=== PATIENT | male | born 1950 | race Caucasian/White ===

== ENCOUNTER 2018-10-22 20:35 | Inpatient (IN) | payer BC, MEDICARE, OTHER ==
[~2018-10-22] VITALS: Ht 182.9 cm; Wt 64.1 kg
[2018-10-22] MEDS ORDERED: ALBUTEROL/IPRATROPIUM 3 ML NEB NEB STA (21:50)
--- NOTE | 2018-10-22 21:50 | Diagnostic Imaging Report ---
EXAMINATION: CXR 2 VIEW - HOPD INDICATION: Possible URI, cough of one-week ^20181022 ^2129 COMPARISON: None FINDINGS: PA and lateral views TUBES and LINES: None. LUNGS: Diffuse hyperinflation consistent with emphysema. There are bullous emphysematous changes or a cavity in the right upper lobe with stellate density at the inferior aspect. There is adjacent pleural thickening. There are infiltrates in the right lower lobe. The left lung is clear. PLEURA: No pleural effusion or pneumothorax. HEART AND MEDIASTINUM: The cardiomediastinal silhouette is unremarkable. There is rightward deviation of the upper trachea. BONES AND SOFT TISSUES: Diffusely demineralized. There are degenerative changes of the spine. No focal osseous lesions. Soft tissues are unremarkable. UPPER ABDOMEN: No free air under the diaphragm. IMPRESSION: 1. Right lower lobe airspace opacity is suggestive of pneumonia. Recommend follow-up chest x-ray in 8-10 weeks to document interval change/resolution. 2. Bullous emphysematous changes or cavitation of the right upper lobe with associated scarring, pleural thickening, and rightward deviation of the trachea. Correlation with outside studies and TB history is recommended. Signed by: Dr. Moody Bowen MD on 10/22/2018 9:46 PM
[2018-10-22] MEDS ORDERED: ALBUTEROL/IPRATROPIUM 3 ML NEB ONE (21:55)
[2018-10-22] MEDS ORDERED: CEFTRIAXONE SOD 1 GRAM/0.9% SOD CHL 50ML BAG IV STA (21:58)
[2018-10-22] MEDS: NICOTINE 14 MG/EA PATCH TOP SCH (22:00)
[2018-10-22] MEDS ORDERED: AZITHROMYCIN 500MG/NS 250 ML 250 ML IV ONE (22:00)
--- OUTSIDE RECORDS SUMMARY | 2018-10-22 22:37 | XMS REPORT ---
[facility] Address Unknown Phone Unavailable Care Team Providers Care Phlebotomy Services Technician Name Role Phone PARAS MILLER Unavailable Unavailable Problems This patient has no known problems. Allergies, Adverse Reactions, Alerts This patient has no known allergies or adverse reactions. Medications This patient has no known medications. Results Test Description Test Time Test Comments Text Results Atomic Results Result Comments CXR 2 VIEW - HOPD 2018-10-22 21:41:00 [place] [address] Patient Name: MAYTE MCKEON MR #: [id number] : 1950 Age/Sex: 68/M Req #: [id number] Adm Physician: Ordered by: PARAS MILLER MD Report #: [id number] Location: [facility] Room/Bed: Procedure: [id number] HOPD/CXR 2 VIEW - HOPD Exam Date: 10/22/18 Exam Time: 2129 REPORT STATUS: Signed EXAMINATION: CXR 2 VIEW - HOPD INDICATION: Possible URI, cough of one-week 20181022 COMPARISON: None FINDINGS: PA and lateral views TUBES and LINES: None. LUNGS: Diffuse hyperinflation consistent with emphysema. There are bullous emphysematous changes or a cavity in the right upper lobe with stellate density at the inferior aspect. There is adjacent pleural thickening. There are infiltrates in the right lower lobe. The left lung is clear. PLEURA: No pleural effusion or pneumothorax. HEART AND MEDIASTINUM: The cardiomediastinal silhouette is unremarkable. There is rightward deviation of the upper trachea. BONES AND SOFT TISSUES: Diffusely demineralized. There are degenerative changes of the spine. No focal osseous lesions. Soft tissues are unremarkable. UPPER ABDOMEN: No free air under the diaphragm. IMPRESSION: 1. Right lower lobe airspace opacity is suggestive of pneumonia. Recommend follow-up chest x-ray in 8-10 weeks to document interval change/resolution. 2. Bullous emphysematous changes or cavitation of the right upper lobe with associated scarring, pleural thickening, and rightward deviation of the trachea. Correlation with outside studies and TB history is recommended. Signed by: Dr. Lisa Bowen MD on 10/22/2018 9:46 PM Dictated By: LISA BOWEN MD 43 Transcribed By: CALEB on 10/22/182145 COPY TO: PARAS MILLER MD
[2018-10-22 22:58] VITALS: BP 117/75
--- NOTE | 2018-10-22 22:58 | NUR ---
RECEIVED PATIENT FROM [facility]. PATIENT BROUGHT BY STRETCHER, AMBULATED TO BED. STEADY GAIT NOTED. A&OX3. WHEEZING NOTED TO R LUNG, L LUNG CLEAR. BOWEL SOUNDS ACTIVE, LAST BM REPORTED YESTERDAY, 10/21. SKIN INTACT. PATIENT COUGHS OCCASIONALLY, SPECIMEN CONTAINER PROVIDED FOR SPUTUM SAMPLE. TELE BOX 10 APPLIED WITH CONTINUOUS PULSE OX. L AC 20G IV IS ASYMPTOMATIC, INTACT, AND PATENT, WITH FLUIDS RUNNING. PATIENT ORIENTED TO ROOM. TOLD PATIENT TO CALL FOR ASSISTANCE. BED LOCKED IN LOWEST POSITION, SIDE RAILS UPX2, CALL LIGHT IN REACH. DISCUSSED SMOKING WITH PATIENT, PATIENT STATES HE HAS QUIT IN THE PAST BUT IT DOESN'T STICK. REMINDED PATIENT OF IMPORTANCE OF AT LEAST DECREASING SMOKING IN AN EFFORT TO QUIT AND HE VERBALIZED UNDERSTANDING. REINFORCED NO SMOKING POLICY, PATIENT VERBALIZED UNDERSTANDING. PATIENT DOES NOT WANT NICOTINE PATCH AT THIS TIME.
[2018-10-22] MEDS: ALBUTEROL SULF 0.083% NEB SOLN 3 ML NEB NEB SCH (23:00)
[2018-10-22] MEDS: D5.45%NS/KCL 20MEQ 1,000 ML IV SCH (23:15)
[2018-10-23] VITALS (7 sets, daily range): BP systolic 101–122; BP diastolic 60–72
[2018-10-23] MEDS: IPRATROPIUM BROMIDE 0.02% 2.5 ML NEB NEB SCH ×4 (01:00→11:00)
[2018-10-23] MEDS: ALBUTEROL SULF 0.083% NEB SOLN 3 ML NEB NEB SCH ×3 (03:52→11:00)
[2018-10-23] MEDS ORDERED: TRAZODONE HCL50 MG PO (04:47)
[2018-10-23 06:12] LABS: BASOPHILS % 0.2 % (0.0-1.0); EOSINOPHILS # (AUTO) 0.1 (0.0-0.4); EOSINOPHILS % 0.2 % (0.0-6.0); HEMATOCRIT 32.9 % (38.2-49.6); HEMOGLOBIN 10.3 g/dL (14.0-18.0); LYMPHOCYTES # (AUTO) 1.4 (1.0-3.2); LYMPHOCYTES % 6.5 % (18.0-39.1); MEAN CORPUSCULAR HEMOGLOBIN 25.9 pg (28-32); MEAN CORPUSCULAR HGB CONC 31.3 g/dL (31-35); MEAN CORPUSCULAR VOLUME 82.9 fL (81-99); MONOCYTES # (AUTO) 1.8 (0.2-0.8); MONOCYTES % 7.9 % (4.4-11.3); NEUTROPHILS # (AUTO) 18.8 (2.1-6.9); NEUTROPHILS % 84.4 % (38.7-80.0); PLATELET COUNT 321 x10e3/uL (140-360); RED BLOOD COUNT 3.97 x10e6/uL (4.3-5.7); RED CELL DISTRIBUTION WIDTH 17.2 % (11.7-14.4)
[2018-10-23 06:32] LABS: ALANINE AMINOTRANSFERASE 21 IU/L (0-55); ALBUMIN/GLOBULIN RATIO 0.9 (0.8-2.0); ALKALINE PHOSPHATASE 90 IU/L (40-150); ANION GAP 12.1 mmol/L (8-16); BLOOD UREA NITROGEN 15 mg/dL (7-26); BUN/CREATININE RATIO 17 (6-25); CALCIUM 9.2 mg/dL (8.4-10.2); CARBON DIOXIDE 26 mmol/L (22-29); CHLORIDE 101 mmol/L (98-107); CREATININE, SERUM 0.89 mg/dL (0.72-1.25); EST GLOMERULAR FILTRATION RATE > 60 ML/MIN (60-); GLUCOSE 108 mg/dL (74-118); POTASSIUM 4.1 mmol/L (3.5-5.1); SODIUM 135 mmol/L (136-145)
[2018-10-23 06:34] LABS: CREATINE KINASE MB 1.2 ng/mL (0-5.0)
--- NOTE | 2018-10-23 07:05 | NUR ---
Pt received resting in bed. Alert and oriented x4. Oriented to staff and surroundings. Encouraged to press call barron if help needed. Pt verbalized understanding of teaching. Will monitor
[2018-10-23 07:53] LABS: BAND NEUTROPHILS % (MANUAL) 1 %; LYMPHOCYTES % (MANUAL) 10 % (19-48); MONOCYTES % (MANUAL) 1 % (3.4-9.0); NEUTROPHILS % (MANUAL) 88 % (40-74); TOXIC GRANULATION MODERATE
[2018-10-23 07:54] LABS: ANISOCYTOSIS SLIGHT; PLATELET ESTIMATE ADEQUATE; PLATELET MORPHOLOGY COMMENT FEW EDTA CLUMPING; RBC MORPHOLOGY COMMENT ABNORMAL
[2018-10-23] MEDS: CEFTRIAXONE SOD 1 GRAM/0.9% SOD CHL 50ML BAG IV SCH ×2 (08:22→21:15)
[2018-10-23] MEDS: D5.45%NS/KCL 20MEQ 1,000 ML IV SCH (08:22)
--- NOTE | 2018-10-23 08:22 | NUR ---
All meds given as ordered. Educated regarding smoking cessation. Pt verbalized understanding of teaching. Will monitor
[2018-10-23] MEDS: AZITHROMYCIN 500MG/SOD CHL 0.9% 250ML BAG IV SCH (08:54)
[2018-10-23] MEDS ORDERED: BENZONATATE 100 MG CAP PO PRN (12:00)
[2018-10-23] MEDS ORDERED: ALBUTEROL/IPRATROPIUM 3 ML NEB NEB PRN (12:00)
--- NOTE | 2018-10-23 12:20 | NUR ---
Pt left for CT scan
--- NOTE | 2018-10-23 12:38 | NUR ---
Pt returned from CT scan
[2018-10-23] MEDS: ALBUTEROL/IPRATROPIUM 3 ML NEB NEB SCH ×2 (13:00→19:47)
[2018-10-23] MEDS: METHYLPREDNISOLONE SOD SUCC 40 MG/ML VIAL 1ML IV SCH ×2 (14:00→21:59)
[2018-10-23] MEDS: BENZONATATE 100 MG CAP PO SCH ×2 (14:00→21:00)
--- NOTE | 2018-10-23 14:12 | Consultation ---
DATE OF CONSULTATION: 10/23/2018 Pulmonary Consultation REASON FOR CONSULT: Abnormal chest x-ray and COPD. CONSULTING PHYSICIAN: Dr. Hickey. CHIEF COMPLAINT: Shortness of breath and coughing. HISTORY OF PRESENT ILLNESS: Mr. Darnell is a 68-year-old male, who has been a smoker for 50+ years, came in with shortness of breath. The patient does not have any other medical issues. He has been told that he has COPD. He denies any chest pain. He is having shortness of breath and it is near baseline. Chest x-ray is showing right lower lobe opacity and has emphysema. CT chest is pending. REVIEW OF SYSTEMS: GENERAL: Denies any fevers or chills. HEAD: Denies any head trauma. ENT: Denies any earache. CVS: Denies any chest pain. RESPIRATORY: Shortness of breath. GI: Denies any nausea or vomiting. MUSCULOSKELETAL: Denies any arthralgias or myalgias. NEURO: Denies any focal weakness. The rest of the review of systems are negative except as in HPI. PAST MEDICAL HISTORY: COPD. PAST SURGICAL HISTORY: Inguinal hernia surgery. FAMILY AND SOCIAL HISTORY: He has been a smoker for 50 years. Denies any alcohol use. PHYSICAL EXAMINATION: VITAL SIGNS: Temperature 98.0, pulse of 67, blood pressure 111/68, respiratory rate of 18. HEENT: Head is atraumatic, normocephalic. NECK: Supple. CHEST: Reduced air entry bilaterally. HEART: S1, S2 audible. ABDOMEN: Soft, nontender, nondistended. EXTREMITIES: No clubbing, cyanosis, or edema. NEUROLOGIC: Awake and alert. LABORATORY DATA: White count of 22,000, hemoglobin 10.3, platelets 321. Chemistry; sodium 135, potassium 4.1, BUN 15, and creatinine 0.89. Chest x-ray, I have reviewed the images showing emphysema and scarring. CT chest is pending. ASSESSMENT: Mr. Darnell is a 68-year-old male, who presented with shortness of breath. Chest x-ray showing emphysema. Current problems are, 1. Emphysema. 2. Possible right lower lobe pneumonia. 3. Smoker. PLAN: 1. Continue the patient on IV Rocephin, azithromycin and nebulizer treatments. I will also continue IV steroids. 2. We will send sputum for Gram stain and culture and AFB. I am not suspecting TB, possibility of MAC. I will review the CT of the chest. The patient possibly may need bronchoscopy depending upon the findings on the CT chest. MD KRISTINE Bland/RUSTY /[id number]
[2018-10-23 14:31] LABS: CREATINE KINASE 91 IU/L (30-200)
--- NOTE | 2018-10-23 15:37 | History and Physical ---
PRIMARY CARE PHYSICIAN: Dr. Andrés Murphy. BLOWN FILM EXTRUSION OPERATOR: Dr. Nico Huizar. CHIEF COMPLAINT: Cough, wheezing, pneumonia. HISTORY: This is a 68-year-old male, who has been having cough for the past few days. The patient also has fever at home. He came in with leukocytosis. The patient had a chest x-ray done, showed right lower lobe airspace opacity suggestive of pneumonia. He also had bullous emphysema. The patient is a [id number] smoker for many years. He is otherwise stable at this time. PAST MEDICAL HISTORY: COPD and insomnia. PAST SURGICAL HISTORY: Noncontributory. SOCIAL HISTORY: The patient does not drink alcohol, but he is a smoker, a pack per day for many many years. He lives at home. ALLERGIES: NO KNOWN ALLERGIES. HOME MEDICATIONS: Trazodone. PHYSICAL EXAMINATION: VITAL SIGNS: Temperature is 100.5, blood pressure 152/72, pulse rate is 94, respirations 18. GENERAL: The patient is not in acute distress. He is awake. HEENT: Normocephalic, atraumatic. Anicteric. NECK: Supple grossly. PULMONARY: Bilateral coarse and rhonchi. CARDIOVASCULAR: S1, S2. Regular rate and rhythm. ABDOMEN: Soft. EXTREMITIES: No cyanosis or edema. NEUROLOGIC: No focal deficit. LABORATORY DATA: WBC is 22.2, hemoglobin 10.3, hematocrit 32.9, and platelet is 321. Chemistry; sodium is 135, potassium 4.1, chloride 101, bicarb 26, BUN 15, creatinine 0.9, glucose is 108. IMAGING: Chest x-ray is showing that the patient has right lower lobe airspace opacities suggestive of pneumonia. Bullous emphysematous changes. Old cavitation of the right upper lobe with associated scarring. IMPRESSION: 1. Community-acquired pneumonia. 2. Acute exacerbation of chronic obstructive pulmonary disease. 3. Abnormal chest x-ray. PLAN: CT of the chest without contrast. Consultation with Dr. Nico Huizar. IV antibiotics. Nebulizer treatments. IV steroids. We will monitor the patient closely. MD JAVON Victor/RUSTY /[id number]
--- NOTE | 2018-10-23 19:11 | NUR ---
Handoff given to oncoming nurse. Pt requesting something for headache. Tylenol ordered. Will give when verified
[2018-10-23] MEDS: ACETAMINOPHEN 325 MG TAB PO PRN (19:17)
--- NOTE | 2018-10-23 19:29 | NUR ---
AFB sputum ordered, but in computer states that it's cancelled. Called lab, sputum ordered, and verified with oncoming nurse.
--- NOTE | 2018-10-23 20:30 | NUR ---
Pt visited in room during rounds. Patient in stable condition. Patient alert and oriented x3 and ambulatory in room prn. Breath on room air and is on scheduled IV antibiotics. Pt already given smoking cessation education and denies need for nicotine patch. V/S stable. Instructed to call for assistance prn.
--- NOTE | 2018-10-23 21:00 | NUR ---
Report given to incoming slot shift supervisor nurse (Zion). Pt informed of change in nursing assignment.
[2018-10-23] MEDS: NICOTINE 14 MG/EA PATCH TOP SCH (21:01)
[2018-10-23] MEDS ORDERED: SODIUM CHLORIDE 0.9% 250ML 250 ML ONE (21:07)
[2018-10-23] MEDS: TRAZODONE HCL 50 MG TAB PO SCH (21:15)
--- NOTE | 2018-10-23 21:20 | NUR ---
Completed bedside report with nurse. Pt alert and orient to name. Pt lying in bed HOB 30 degrees. Pt denies pain at this time. Call barron within reach. Will continue to monitor.
--- NOTE | 2018-10-23 21:45 | Diagnostic Imaging Report ---
CT chest without enhancement CPT code: 24615 INDICATION: COPD TECHNIQUE: Thin collimation axial images obtained from the thoracic inlet to the level of the diaphragm without intravenous contrast. Dose reduction techniques used: Automated exposure control, adjustment of the mAs and/or kVp according to patient size, standardized low-dose protocol, and/or iterative reconstruction technique. RADIATION DOSE: Total DLP: 481.25 mGy*cm Estimated effective dose: (DLP x 0.015 x size factor) mSv CTDIvol has been reviewed. It is below the limits set by the Radiation Protocol Committee (RPC). COMPARISON: Chest x-ray 10/22/2018. CHEST FINDINGS: Lymph nodes: No enlarged axillary or supraclavicular lymph nodes. Precarinal lymph nodes are enlarged, measuring up to 15 mm in short axis. Subcarinal lymph nodes measure up to 12 mm in short axis. Hilar lymphadenopathy cannot be excluded given the lack of intravenous contrast. Thyroid: Normal in size without mass in the visualized parenchyma.. Mediastinum: The heart is normal in size. The ascending aorta measures 4.2 cm. The main pulmonary artery measures 2.7 cm. The right pulmonary artery measures 3.1 cm. The left pulmonary artery measures 2.4 cm. There is a small pericardial effusion. The esophagus is collapsed. Lungs/pleura/airways: Right: Centrilobular emphysema. Septated cavity in the apex of the upper lobe measures 6.4 x 6.2 x 4.6 cm. There is no evidence of fluid. Scarring and bronchiectasis adjacent lung parenchyma immediately inferior. The adjacent pleura is thickened both laterally and posteriorly. Diffuse airspace opacities throughout the mid and inferior lower lobe with associated bronchiectasis and bronchial wall thickening. There is a small associated pleural effusion. Left: Centrilobular and paraseptal emphysema. Diffuse bronchial wall thickening. No infiltrates. No mass. No pleural effusion. Mild bronchial wall thickening suggestive of chronic bronchitis. Airways: There is narrowing of the right main bronchus to 9 mm without intraluminal filling defect. The bronchus intermedius measures 7 mm. ABDOMEN FINDINGS: No mass or lymphadenopathy in the upper abdomen. Trace amount of perihepatic fluid. Bones: No lytic or blastic lesions.. IMPRESSION: 1. Thick walled cavity in the apex of the right upper lobe with associated pleural thickening and scarring/bronchiectasis at the inferior aspect. Etiology is uncertain. This may be the sequela of previous infection, either bacterial or mycobacterial. Recommend 3 month follow-up to confirm stability. 2. Right lower lobe infiltrates suggestive of pneumonia. 3. Enlarged pulmonary artery suggestive of pulmonary artery hypertension. There is narrowing of the right bronchus without filling defect. This may be secondary to mass effect from the pulmonary artery. Underlying malignancy cannot be excluded on this unenhanced examination. 4. Prominent mediastinal lymph nodes, likely reactive. 5. Centrilobular and paraseptal emphysema. 6. Prominent ascending aorta. Signed by: Dr. Moody Bowen MD on 10/23/2018 9:42 PM
[2018-10-24] VITALS (7 sets, daily range): BP systolic 98–127; BP diastolic 55–65
[2018-10-24] MEDS: ALBUTEROL/IPRATROPIUM 3 ML NEB NEB SCH ×4 (01:04→19:40)
[2018-10-24] MEDS: METHYLPREDNISOLONE SOD SUCC 40 MG/ML VIAL 1ML IV SCH ×2 (06:00→16:38)
[2018-10-24 06:05] LABS: BASOPHILS % 0.1 % (0.0-1.0); HEMATOCRIT 31.8 % (38.2-49.6); LYMPHOCYTES # (AUTO) 0.9 (1.0-3.2); LYMPHOCYTES % 5.1 % (18.0-39.1); MEAN CORPUSCULAR HEMOGLOBIN 26.2 pg (28-32); MEAN CORPUSCULAR HGB CONC 31.4 g/dL (31-35); MEAN CORPUSCULAR VOLUME 83.5 fL (81-99); MONOCYTES # (AUTO) 0.4 (0.2-0.8); MONOCYTES % 2.2 % (4.4-11.3); NEUTROPHILS # (AUTO) 16.1 (2.1-6.9); NEUTROPHILS % 91.9 % (38.7-80.0); PLATELET COUNT 334 x10e3/uL (140-360); RED BLOOD COUNT 3.81 x10e6/uL (4.3-5.7); RED CELL DISTRIBUTION WIDTH 17.4 % (11.7-14.4)
[2018-10-24 06:30] LABS: ANION GAP 14.1 mmol/L (8-16); BLOOD UREA NITROGEN 23 mg/dL (7-26); BUN/CREATININE RATIO 26 (6-25); CALCIUM 9.2 mg/dL (8.4-10.2); CARBON DIOXIDE 23 mmol/L (22-29); CHLORIDE 106 mmol/L (98-107); EST GLOMERULAR FILTRATION RATE > 60 ML/MIN (60-); GLUCOSE 245 mg/dL (74-118); POTASSIUM 4.1 mmol/L (3.5-5.1); SODIUM 139 mmol/L (136-145)
--- NOTE | 2018-10-24 07:00 | NUR ---
Pt received resting in bed. Emotional support given. Call barron within reach
--- NOTE | 2018-10-24 08:30 | NUR ---
Saline lock #20 inserted in left arm. Advised regarding the need to collect sputum. Pt verbalized understanding of teaching. Will monitor
[2018-10-24] MEDS: CEFTRIAXONE SOD 1 GRAM/0.9% SOD CHL 50ML BAG IV SCH ×2 (09:00→21:05)
[2018-10-24] MEDS: BENZONATATE 100 MG CAP PO SCH ×3 (09:00→20:50)
[2018-10-24 09:10] LABS: BAND NEUTROPHILS % (MANUAL) 3 %; LYMPHOCYTES % (MANUAL) 6 % (19-48); MONOCYTES % (MANUAL) 2 % (3.4-9.0); NEUTROPHILS % (MANUAL) 89 % (40-74)
[2018-10-24 09:11] LABS: LARGE PLATELETS FEW; PLATELET ESTIMATE ADEQUATE; PLATELET MORPHOLOGY COMMENT FEW LARGE; RBC MORPHOLOGY COMMENT NORMAL
[2018-10-24] MEDS: AZITHROMYCIN 500MG/SOD CHL 0.9% 250ML BAG IV SCH (10:00)
--- NOTE | 2018-10-24 11:50 | NUR ---
Dr. Huizar ordered for staff to obtain old records. Pt stated that he used to go to "[facility] and they don't do nothing, that's why I left". Pt given release of information paper. Will follow up
--- NOTE | 2018-10-24 12:30 | NUR ---
Advised pt to fill out request for release of [facility] for [facility]. Handoff given to oncoming nurse.
--- NOTE | 2018-10-24 13:52 | NUR ---
Report received. Patient resting in bed, side rails upx2, call light within reach. AAOX4 to time, person, place, situation. Respirations even and unlabored. Reminded patient of orders for sputum sample. Aware signature needed to obtain medical records. Patient states " I have to take a look at the form, I am telling you it's pointless to ask for [facility] records." Explained importance of obtaining records. Voiced understanding and remains refusing to sign.
--- NOTE | 2018-10-24 19:05 | NUR ---
Report given to oncoming nurse of patient's status. Resting in bed. NO s/s of acute distress noted. side rails upx3, call light within reach
--- NOTE | 2018-10-24 19:30 | NUR ---
Patient visited in room during rounds. Patient alert and oriented x3. No distress or discomfort noted. Patient ambulatory in room prn. On scheduled IV antibiotics. Pt refuses nicotine patch. Call barron within reach.
--- NOTE | 2018-10-24 20:00 | NUR ---
Spoke with patient regarding order from Dr. Huizar to obtain medical records from [facility]. Patient refused to sign "Authorization to inspect and release protected health information" form. Patient stated it would just be a waste of time and that it would be irrelevant with regards to his current care. Information to be passed on to dayshift RN and to relay with Dr. Huizar in the morning (10/25/18).
[2018-10-24] MEDS: NICOTINE 14 MG/EA PATCH TOP SCH (20:50)
[2018-10-24] MEDS: TRAZODONE HCL 50 MG TAB PO SCH (21:55)
[2018-10-25] VITALS (8 sets, daily range): BP systolic 115–151; BP diastolic 61–78
[2018-10-25] MEDS: ALBUTEROL/IPRATROPIUM 3 ML NEB NEB SCH ×4 (01:25→19:38)
[2018-10-25 06:07] LABS: BASOPHILS % 0.1 % (0.0-1.0); HEMATOCRIT 30.4 % (38.2-49.6); HEMOGLOBIN 9.6 g/dL (14.0-18.0); LYMPHOCYTES # (AUTO) 1.3 (1.0-3.2); MEAN CORPUSCULAR HEMOGLOBIN 26.4 pg (28-32); MEAN CORPUSCULAR HGB CONC 31.6 g/dL (31-35); MEAN CORPUSCULAR VOLUME 83.7 fL (81-99); MONOCYTES # (AUTO) 0.8 (0.2-0.8); MONOCYTES % 3.8 % (4.4-11.3); NEUTROPHILS # (AUTO) 18.5 (2.1-6.9); NEUTROPHILS % 89.3 % (38.7-80.0); PLATELET COUNT 404 x10e3/uL (140-360); RED BLOOD COUNT 3.63 x10e6/uL (4.3-5.7); RED CELL DISTRIBUTION WIDTH 17.3 % (11.7-14.4)
--- NOTE | 2018-10-25 06:58 | NUR ---
RECEIVED PATIENT RESTING IN BED. NO ACUTE DISTRESS NOTED, RESPIRATIONS EVEN AND UNLABORED. CALL LIGHT WITHIN REACH. BED IN THE LOWEST POSITION.
[2018-10-25] MEDS: BENZONATATE 100 MG CAP PO SCH ×3 (09:00→21:00)
[2018-10-25] MEDS: CEFTRIAXONE SOD 1 GRAM/0.9% SOD CHL 50ML BAG IV SCH ×2 (09:07→21:00)
[2018-10-25] MEDS: METHYLPREDNISOLONE SOD SUCC 40 MG/ML VIAL 1ML IV SCH ×2 (09:07→16:48)
[2018-10-25] MEDS: AZITHROMYCIN 500MG/SOD CHL 0.9% 250ML BAG IV SCH (09:42)
[2018-10-25] MEDS: ACETAMINOPHEN 325 MG TAB PO PRN (15:17)
--- NOTE | 2018-10-25 17:31 | Progress Note ---
DATE: 10/25/2018 Medicine Progress Note Covering for Dr. Hickey. SUBJECTIVE: The patient was admitted for underlying COPD and underlying community-acquired pneumonia. The patient is on IV antibiotics. He is on neb treatments and steroids. Pulmonary was consulted. Family had many questions in relation to the Pulmonary situation. PHYSICAL EXAMINATION: VITAL SIGNS: Temperature is 97.2, pulse 85, respiratory rate 17, blood pressure 130/77, pulse ox 94% on room air. GENERAL: Not in acute distress. Alert and oriented x3. Cooperative on examination. HEENT: Head is normocephalic and atraumatic. Eyes; pupils are equal, round, and reactive to light bilaterally. Extraocular movements are intact bilaterally. Throat, no evidence of erythema or exudates in the posterior pharynx. Has poor dentition. NECK: Supple. Good range of motion. PULMONARY: Clear to auscultation bilaterally. No wheezing, no rales, no rhonchi, no crackles appreciated. CARDIOVASCULAR: Positive S1, S2. No murmurs, rubs, or gallops appreciated. ABDOMEN: Soft, nondistended, and nontender to palpation. Bowel sounds present. MUSCULOSKELETAL: Strength is 5/5 throughout. No evidence of any muscle deficits on examination. No weakness appreciated. NEUROLOGICAL: Cranial nerves II through XII grossly intact. No evidence of any neurological deficits on exam. SKIN: Intact. Warm to touch. Good cap refill. PSYCHIATRIC: Normal affect and mood. EXTREMITIES: No edema. Good range of motion throughout. LABORATORY DATA: Lab findings show white count was 20.7, hemoglobin 9.6, hematocrit 30, platelets of 404. Chemistry; sodium 139, potassium 4.1, chloride 106, bicarb 23, anion gap of 14, BUN 12, creatinine is 0.9. Rest of labs are stable. Blood cultures were negative. IMAGING STUDIES: CT chest shows a thick-walled cavity in apex of the right upper lobe associated with pleural thickening and scarring. Bronchiectasis in inferior aspect. There is some evidence of pulmonary artery hypertension. Prominent mediastinal lymph nodes likely reactive. Centrilobular and paraseptal emphysema appreciated. There is evidence of right lower lobe infiltrate suggestive of a pneumonia. IMPRESSION: 1. Acute exacerbation of chronic obstructive pulmonary disease. 2. Community-acquired pneumonia. 3. Abnormal chest CT. PLAN: Steroids, neb treatments, antibiotics. Pulmonary following. He seems to be needing a bronchoscopy, but they want to ask more questions with Pulmonary. Artur montemayor. MD HUSSAIN Ortiz/RUSTY /[id number]
--- NOTE | 2018-10-25 19:21 | NUR ---
REPORT GIVEN TO ONCOMING NURSE, WALKING ROUNDS DONE, PATIENT IS RESTING IN BED. NO ACUTE DISTRESS NOTED. CALL LIGHT WITHIN REACH. BED IN THE LOWEST POSITION.
--- NOTE | 2018-10-25 20:18 | NUR ---
RECEIVED PT IN BED AOX3 NO ACUTE DISTRESS NOTED .DR HUGGINS SAW THE PT AND ORDERED BRONCHOSCOPY WITH BIOPSY .PT IS NPO AFTER MIDNIGHT .CONTINUE TO MONITOR .CALL LIGHT WITH IN REACH
[2018-10-25] MEDS: TRAZODONE HCL 50 MG TAB PO SCH (21:00)
[2018-10-25] MEDS: NICOTINE 14 MG/EA PATCH TOP SCH (22:00)
[2018-10-26] VITALS (9 sets, daily range): BP systolic 105–142; BP diastolic 58–83
[2018-10-26] MEDS: ALBUTEROL/IPRATROPIUM 3 ML NEB NEB SCH ×4 (01:30→19:32)
[2018-10-26 06:22] LABS: BASOPHILS % 0.2 % (0.0-1.0); HEMOGLOBIN 9.3 g/dL (14.0-18.0); LYMPHOCYTES # (AUTO) 1.9 (1.0-3.2); LYMPHOCYTES % 13.3 % (18.0-39.1); MEAN CORPUSCULAR HEMOGLOBIN 26.1 pg (28-32); MEAN CORPUSCULAR VOLUME 84.3 fL (81-99); MONOCYTES # (AUTO) 0.8 (0.2-0.8); MONOCYTES % 5.6 % (4.4-11.3); NEUTROPHILS # (AUTO) 11.1 (2.1-6.9); NEUTROPHILS % 79.4 % (38.7-80.0); PLATELET COUNT 428 x10e3/uL (140-360); RED BLOOD COUNT 3.56 x10e6/uL (4.3-5.7); RED CELL DISTRIBUTION WIDTH 17.4 % (11.7-14.4)
--- NOTE | 2018-10-26 06:50 | NUR ---
RECEIVED PATIENT RESTING IN BED. RESPIRATIONS EVEN AND UNLABORED, NO ACUTE DISTRESS NOTED. DENIES PAIN OR DISCOMFORT. CALL LIGHT WITHIN REACH. BED IN THE LOWEST POSITION.
[2018-10-26 07:03] LABS: ANION GAP 11.5 mmol/L (8-16); BLOOD UREA NITROGEN 24 mg/dL (7-26); BUN/CREATININE RATIO 29 (6-25); CALCIUM 8.9 mg/dL (8.4-10.2); CARBON DIOXIDE 27 mmol/L (22-29); CHLORIDE 107 mmol/L (98-107); CREATININE, SERUM 0.82 mg/dL (0.72-1.25); EST GLOMERULAR FILTRATION RATE > 60 ML/MIN (60-); GLUCOSE 94 mg/dL (74-118); POTASSIUM 4.5 mmol/L (3.5-5.1); SODIUM 141 mmol/L (136-145)
--- NOTE | 2018-10-26 07:13 | NUR ---
PT SLEPT DURING THE NIGHT .DENIES PAIN PT IS NPO FOR BRONCHOSCOPY REPORT GIVEN TO THE ONCOMING NURSE
[2018-10-26] MEDS: METHYLPREDNISOLONE SOD SUCC 40 MG/ML VIAL 1ML IV SCH ×2 (08:35→17:17)
[2018-10-26] MEDS: CEFTRIAXONE SOD 1 GRAM/0.9% SOD CHL 50ML BAG IV SCH ×2 (08:40→21:18)
[2018-10-26] MEDS: BENZONATATE 100 MG CAP PO SCH ×3 (09:00→21:18)
[2018-10-26] MEDS: AZITHROMYCIN 500MG/SOD CHL 0.9% 250ML BAG IV SCH (09:14)
[2018-10-26] MEDS ORDERED: LIDOCAINE HCL 4% 50 ML BTL ONE (09:26)
[2018-10-26] MEDS ORDERED: LIDOCAINE HCL 2% 30 ML TUBE ONE (09:27)
[2018-10-26] MEDS ORDERED: ACETYLCYSTEINE 200 MG/ML 4ML VIAL ONE (09:27)
[2018-10-26] MEDS ORDERED: EPINEPHRINE HCL 1:1000 1ML 1 MG/ML AMP ONE (09:27)
[2018-10-26] MEDS ORDERED: OXYMETAZOLINE HCL 0.05% NAS 1 SPRAY BTL ONE (09:27)
--- NOTE | 2018-10-26 09:39 | NUR ---
PATIENT OFF UNIT FOR PROCEDURE AT THIS TIME.
--- NOTE | 2018-10-26 11:10 | Progress Note ---
DATE: 10/26/2018 SUBJECTIVE: The patient is still having cough and breathing better. Denies any complaints. PHYSICAL EXAMINATION: VITAL SIGNS: Temperature 96.8, pulse of 82, blood pressure 142/83. CHEST: Crackles in the bases, otherwise clear. HEART: S1, S2 audible. ABDOMEN: Soft. EXTREMITIES: No pedal edema. LABORATORY DATA: White count of 14,000, has come down from 22,000, hemoglobin 9.3. Chemistries within normal limits. ASSESSMENT: A 68-year-old male with COPD, heavy smoker, came in with shortness of breath. Chest CT is suggestive of right lower lobe pneumonia. There is right upper lobe cavity. PLAN: Bronchoscopy with BAL biopsy today. Continue the patient on IV antibiotics. Oxygen as needed. Nebulizer treatment. MD KRISTINE Bland/RUSTY /[id number]
--- NOTE | 2018-10-26 11:19 | Diagnostic Imaging Report ---
PROCEDURE: CHEST SINGLE (PORTABLE) COMPARISON: CT chest without contrast 10/23/2018, chest radiograph 10/22/2018. INDICATIONS: POST BRONCH FINDINGS: The lungs remain hyperinflated. Right apical cavitary lesion is again noted, with interval development of patchy regional opacities, likely reflective of post bronchoscopy changes. Airspace disease in the right lower lobe has slightly improved relative to 10/22/2018. Left lung remains grossly clear. Stable cardiomediastinal contour without overt pulmonary edema. CONCLUSION: Status post bronchoscopy without pneumothorax. Patchy opacities in the right apical cavitary lesion likely post bronchoscopy changes. Interval improvement in aeration of the right lower lobe. Background emphysematous changes. Dictated by: Nico Gotti M.D. on 10/26/2018 at 11:24 Electronically approved by: Nico Gotti M.D. on 10/26/2018 at 11:24
--- NOTE | 2018-10-26 13:16 | Operative Report ---
DATE OF PROCEDURE: 10/26/2018 SURGEON: Henrique Brooks MD PREPROCEDURE DIAGNOSIS: Abnormal CT chest. POSTPROCEDURE DIAGNOSIS: No endobronchial lesion, narrowing of the right main bronchus externally compressed, no internal lesion, thick purulent secretion in the left lower lobe and tenacious clear thick secretion in the left lung. ANESTHESIA: General. PROCEDURE IN DETAIL: Bronchoscope was advanced through the LMA. Elise was identified. Right main bronchus was obviously narrowed and with external compression. Possibly as per CT, there were large pulmonary arteries. No endobronchial lesion was seen in either of the lung. Right upper lobe, middle lobe, and lower lobe were examined. Openings were narrow, however, no endobronchial lesion. Thick purulent secretion was suctioned from right middle lobe and right lower lobe. Left upper lobe, lingula and lower lobe were examined. Clear tenacious secretion was suctioned from the left upper lobe, lingula and lower lobe. This was followed by transbronchial lung biopsy under fluoroscopic guidance from right upper lobe. Multiple samples were taken from right upper lobe from all segments. Samples were sent for AFB, fungus, Gram stain, culture, pathology, and cytology. Transbronchial lung biopsy was followed by cytology brushing. The patient tolerated the procedure well. Estimated blood loss was less than 2 mL. Postprocedure chest x-ray is pending. MD KRISTINE Bland/MODL /[id number]
[2018-10-26] MEDS ORDERED: PROPOFOL IV EMULSION 10 MG/ML 20 ML VIAL ONE (18:07)
[2018-10-26] MEDS ORDERED: ONDANSETRON HCL INJ 2MG/ML 2ML 2 MG/ML VIAL ONE (18:07)
[2018-10-26] MEDS ORDERED: LIDOCAINE HCL 2% LOCAL INJ 5 ML SDV VIAL INJ ONE (18:07)
[2018-10-26] MEDS ORDERED: FENTANYL CITRATE/PF 100MCG/2 ML INJ ONE (18:33)
[2018-10-26] MEDS ORDERED: MIDAZOLAM HCL 2 MG/2 ML VIAL ONE (18:33)
--- NOTE | 2018-10-26 19:27 | NUR ---
REPORT GIVEN TO ONCOMING NURSE. PATIENT IS RESTING IN COUCH. NO ACUTE DISTRESS NOTED. AT BEDSIDE. CALL LIGHT WITHIN REACH.
--- NOTE | 2018-10-26 20:08 | Progress Note ---
DATE: 10/26/2018 Medicine Progress Note SUBJECTIVE: The patient is doing well today with no complaints. He is status post bronchoscopy performed today by Pulmonary. PHYSICAL EXAMINATION: VITAL SIGNS: Temperature is 96.7, pulse 70, respiratory rate is 18, blood pressure 122/69, pulse ox of 95% on room air. GENERAL: Not in acute distress. Alert and oriented x3. Cooperative on examination. HEENT: Head is normocephalic and atraumatic. Eyes; pupils are equal, round, and reactive to light bilaterally. Extraocular movements are intact bilaterally. Throat, no evidence of erythema or exudates in the posterior pharynx. Has poor dentition. NECK: Supple. Good range of motion. PULMONARY: Clear to auscultation bilaterally. No wheezing, no rales, no rhonchi, no crackles appreciated. CARDIOVASCULAR: Positive S1, S2. No murmurs, rubs, or gallops appreciated. ABDOMEN: Soft, nondistended, and nontender to palpation. Bowel sounds are present. MUSCULOSKELETAL: Strength is 5/5 throughout. No evidence of any muscle deficits on examination. No weakness appreciated. NEUROLOGICAL: Cranial nerves II through XII grossly intact. No evidence of any neurological deficits on exam. SKIN: Intact. Warm to touch. Good cap refill. PSYCHIATRIC: Normal affect and mood. EXTREMITIES: No edema. Good range of motion throughout. LABORATORY DATA: Lab findings show white count of 14, hemoglobin 9.3, hematocrit is 30, platelets of 428. Chemistry; sodium 141, potassium 4.5, chloride 107, bicarb 27, anion gap of 11, BUN is 24, creatinine is 0.80, calcium 8.9, glucose 94. MICROBIOLOGY: Washout of the bronchoscopy is all pending. IMPRESSION: 1. Acute exacerbation of chronic obstructive pulmonary disease. 2. Community-acquired pneumonia. 3. Abnormal CT chest. 4. Status post bronchoscopy with washout. PLAN: At this time, he is status post bronchoscopy with washout, pending cultures. Follow up Pulmonary recommendation. Steroids, neb treatments, antibiotics. Get a.m. labs. MD HUSSAIN Ortiz/MODL /[id number]
--- NOTE | 2018-10-26 20:19 | NUR ---
RECEIVED PT IN BEDAOX3 DENIES PAIN RESPIRATIONS ARE EVEN AND UNLABORED .FAMILY AT THE BEDSIDE .PT HAS BRONCHOSCOPY WITH BIOPSY
[2018-10-26] MEDS: TRAZODONE HCL 50 MG TAB PO SCH (21:18)
[2018-10-26] MEDS: NICOTINE 14 MG/EA PATCH TOP SCH (22:00)
[2018-10-27] MEDS: ALBUTEROL/IPRATROPIUM 3 ML NEB NEB SCH ×4 (01:28→20:00)
[2018-10-27 04:00] VITALS: BP 117/60
--- NOTE | 2018-10-27 06:31 | NUR ---
PT RESTED DURING THE NIGHT NO ACUTE DISTRESS NOTED .CALL LIGHT WITH IN REACH
[2018-10-27 06:35] LABS: BASOPHILS % 0.3 % (0.0-1.0); EOSINOPHILS % 0.3 % (0.0-6.0); HEMATOCRIT 29.9 % (38.2-49.6); HEMOGLOBIN 9.2 g/dL (14.0-18.0); LYMPHOCYTES # (AUTO) 2.9 (1.0-3.2); LYMPHOCYTES % 20.4 % (18.0-39.1); MEAN CORPUSCULAR HEMOGLOBIN 25.9 pg (28-32); MEAN CORPUSCULAR HGB CONC 30.8 g/dL (31-35); MEAN CORPUSCULAR VOLUME 84.2 fL (81-99); MONOCYTES # (AUTO) 1.2 (0.2-0.8); MONOCYTES % 8.2 % (4.4-11.3); NEUTROPHILS # (AUTO) 9.7 (2.1-6.9); NEUTROPHILS % 68.5 % (38.7-80.0); PLATELET COUNT 413 x10e3/uL (140-360); RED BLOOD COUNT 3.55 x10e6/uL (4.3-5.7); RED CELL DISTRIBUTION WIDTH 17.3 % (11.7-14.4)
[2018-10-27 06:48] LABS: ANION GAP 15.7 mmol/L (8-16); BLOOD UREA NITROGEN 25 mg/dL (7-26); BUN/CREATININE RATIO 28 (6-25); CALCIUM 9.2 mg/dL (8.4-10.2); CARBON DIOXIDE 29 mmol/L (22-29); CHLORIDE 100 mmol/L (98-107); CREATININE, SERUM 0.89 mg/dL (0.72-1.25); EST GLOMERULAR FILTRATION RATE > 60 ML/MIN (60-); GLUCOSE 86 mg/dL (74-118); POTASSIUM 4.7 mmol/L (3.5-5.1); SODIUM 140 mmol/L (136-145)
--- NOTE | 2018-10-27 07:12 | NUR ---
BEDSIDE REPORT GIVEN TO THE ONCOMING NURSE
[2018-10-27 07:51] VITALS: BP 136/67
[2018-10-27 07:57] LABS: BAND NEUTROPHILS % (MANUAL) 1 %; EOSINOPHILS % (MANUAL) 1 % (0-7); LYMPHOCYTES % (MANUAL) 21 % (19-48); MONOCYTES % (MANUAL) 7 % (3.4-9.0); NEUTROPHILS % (MANUAL) 70 % (40-74)
[2018-10-27 07:58] LABS: PLATELET MORPHOLOGY COMMENT NORMAL
[2018-10-27 07:59] LABS: PLATELET ESTIMATE SLIGHTLY INCREASED; RBC MORPHOLOGY COMMENT NORMAL
--- NOTE | 2018-10-27 08:00 | NUR ---
Pt received in bed at this time. Pt is aox4 and able to verbalize needs. Denies any pain at this time. Denies SOB is on room air. Breaths are even and unlabored on room air.
[2018-10-27 08:08] VITALS: BP 136/67
[2018-10-27] MEDS: METHYLPREDNISOLONE SOD SUCC 40 MG/ML VIAL 1ML IV SCH ×2 (08:58→18:49)
[2018-10-27] MEDS: CEFTRIAXONE SOD 1 GRAM/0.9% SOD CHL 50ML BAG IV SCH ×2 (08:58→20:40)
[2018-10-27] MEDS: BENZONATATE 100 MG CAP PO SCH ×3 (08:58→20:40)
[2018-10-27] MEDS: AZITHROMYCIN 500MG/SOD CHL 0.9% 250ML BAG IV SCH (09:43)
[2018-10-27 11:29] VITALS: BP 120/66
--- NOTE | 2018-10-27 12:00 | NUR ---
Pt was evaluated for home O2 by respiratory and pt did not meet criteria.
--- NOTE | 2018-10-27 14:05 | NUR ---
SPOKE WITH PT REGARDING PULMONARY REHAB PROGRAM AND HE IS AGREEABLE ORDERS ENTERED
--- NOTE | 2018-10-27 14:06 | NUR ---
HOME 02 EVAL DONE; DOES NOT QUALIFY FOR HOME 02 SATS ON AMBULATION 92%
[2018-10-27 15:58] VITALS: BP 144/71
--- NOTE | 2018-10-27 19:20 | NUR ---
Patient visited in room during rounds. Patient alert and oriented x3. No distress or discomfort noted. Patient ambulatory in room prn. at bedside visiting. On scheduled IV antibiotics. Pt refuses nicotine patch. Call barron within reach.
[2018-10-27] MEDS ORDERED: LORAZEPAM 0.5 MG TAB PO PRN (19:30)
[2018-10-27 20:00] VITALS: BP 134/62
[2018-10-27] MEDS ORDERED: SODIUM CHLORIDE 0.9% 250ML 250 ML ONE (20:31)
[2018-10-27] MEDS: TRAZODONE HCL 50 MG TAB PO SCH (20:40)
[2018-10-27] MEDS: NICOTINE 14 MG/EA PATCH TOP SCH (20:46)
--- NOTE | 2018-10-27 23:36 | Progress Note ---
DATE: 10/27/2018 SUBJECTIVE: The patient is anxious to go home. His bronchial washings showed gram-negative bacilli and . I told him that he would have to wait for the cultures to come back. Pulmonary the patient agreed to stay longer. PHYSICAL EXAMINATION: VITAL SIGNS: Temperature 96.4, pulse 82, respirations 20, blood pressure GENERAL: Not in acute distress, alert and oriented x3. Cooperative on examination. HEENT: Head is normocephalic and atraumatic. Eyes; pupils are equal, round, and reactive to light bilaterally. Extraocular movements are intact bilaterally. Throat, no evidence of erythema or exudates in the posterior pharynx. Has poor dentition. NECK: Supple. Good range of motion. PULMONARY: Clear to auscultation bilaterally. No wheezing, no rales, no rhonchi, no crackles appreciated. CARDIOVASCULAR: Positive S1, S2. No murmurs, rubs, or gallops appreciated. ABDOMEN: Soft, nontender, nondistended to palpation. Bowel sounds are present. MUSCULOSKELETAL: Strength is 5/5 throughout. No evidence of any muscle deficits on examination. No weakness appreciated. NEUROLOGICAL: Cranial nerves II through XII grossly intact. No evidence of any neurological deficits on exam. PSYCHIATRIC: Normal affect and mood. EXTREMITIES: No edema. Good range of motion throughout. LABORATORY DATA: Lab findings show white count 14, hemoglobin 9.2, hematocrit 29.9, and platelets of 413. Chemistry; sodium 140, potassium 4.7, chloride MICROBIOLOGY: Bronchial washing showed gram-negative bacilli. Blood cultures no growth. IMPRESSION: 1. Acute exacerbation of chronic obstructive pulmonary disease. 2. Community-acquired pneumonia. 3. Abnormal CT scan of the chest. 4. bronchial washing cultures. PLAN: Await Pulmonary is following as well. MD HUSSAIN Ortiz/MODL /[id number]
[2018-10-28] VITALS: BP 121/59
[2018-10-28] MEDS: ALBUTEROL/IPRATROPIUM 3 ML NEB NEB SCH ×3 (01:00→13:35)
[2018-10-28 04:00] VITALS: BP 127/67
[2018-10-28] MEDS ORDERED: SODIUM CHLORIDE 0.9% 100 ML ONE (07:44)
[2018-10-28 08:00] VITALS: BP 140/67
[2018-10-28] MEDS: BENZONATATE 100 MG CAP PO SCH (08:41)
[2018-10-28] MEDS: METHYLPREDNISOLONE SOD SUCC 40 MG/ML VIAL 1ML IV SCH (08:41)
[2018-10-28] MEDS: CEFTRIAXONE SOD 1 GRAM/0.9% SOD CHL 50ML BAG IV SCH (08:41)
[2018-10-28] MEDS: AZITHROMYCIN 500MG/SOD CHL 0.9% 250ML BAG IV SCH (09:26)
[2018-10-28 12:00] VITALS: BP 140/71
[2018-10-28] MEDS ORDERED: LEVOFLOXACIN 500 MG TAB PO SCH (12:00)
[2018-10-28 16:00] VITALS: BP 113/70
[2018-10-28 16:12] LABS: BASOPHILS # (AUTO) 0.1 (0.0-0.1); BASOPHILS % 0.3 % (0.0-1.0); EOSINOPHILS # (AUTO) 0.1 (0.0-0.4); EOSINOPHILS % 0.6 % (0.0-6.0); HEMATOCRIT 35.6 % (38.2-49.6); HEMOGLOBIN 11.3 g/dL (14.0-18.0); LYMPHOCYTES # (AUTO) 2.6 (1.0-3.2); LYMPHOCYTES % 12.8 % (18.0-39.1); MEAN CORPUSCULAR HEMOGLOBIN 26.6 pg (28-32); MEAN CORPUSCULAR HGB CONC 31.7 g/dL (31-35); MEAN CORPUSCULAR VOLUME 83.8 fL (81-99); MONOCYTES # (AUTO) 1.4 (0.2-0.8); MONOCYTES % 6.7 % (4.4-11.3); NEUTROPHILS # (AUTO) 14.9 (2.1-6.9); NEUTROPHILS % 74.4 % (38.7-80.0); PLATELET COUNT 553 x10e3/uL (140-360); RED BLOOD COUNT 4.25 x10e6/uL (4.3-5.7); RED CELL DISTRIBUTION WIDTH 17.4 % (11.7-14.4)
[2018-10-28 16:40] LABS: BASOPHILS % 0.2 % (0.0-1.0); EOSINOPHILS # (AUTO) 0.1 (0.0-0.4); EOSINOPHILS % 0.6 % (0.0-6.0); HEMATOCRIT 33.7 % (38.2-49.6); HEMOGLOBIN 10.8 g/dL (14.0-18.0); LYMPHOCYTES # (AUTO) 2.1 (1.0-3.2); LYMPHOCYTES % 12.1 % (18.0-39.1); MEAN CORPUSCULAR HEMOGLOBIN 26.8 pg (28-32); MEAN CORPUSCULAR VOLUME 83.6 fL (81-99); MONOCYTES # (AUTO) 1.3 (0.2-0.8); MONOCYTES % 7.6 % (4.4-11.3); NEUTROPHILS # (AUTO) 13.2 (2.1-6.9); NEUTROPHILS % 74.7 % (38.7-80.0); PLATELET COUNT 515 x10e3/uL (140-360); RED BLOOD COUNT 4.03 x10e6/uL (4.3-5.7); RED CELL DISTRIBUTION WIDTH 17.4 % (11.7-14.4)
[2018-10-28] MEDS ORDERED: LEVAQUIN500 MG PO (17:23)
--- NOTE | 2018-10-28 17:50 | NUR ---
Pt discharged home at this time. Pt and verbalized understanding of discharge instructions. Breaths are even and unlabored on room air. Pt was sent home with prescription for antibiotics. 0 s/s of acute distress noted.
--- NOTE | 2018-10-28 23:54 | Discharge Summary ---
FINAL DISCHARGE DIAGNOSES: 1. Acute exacerbation of chronic obstructive pulmonary disease. 2. Community-acquired pneumonia. 3. Abnormal CT findings, status post bronchoscopy with bronchial washings with positive Pseudomonas on bronchial washings. 4. Steroid-induced leukocytosis. CONSULTANTS: Pulmonary. PHYSICAL EXAMINATION: VITAL SIGNS: Temperature is 97.7, he is afebrile, pulse 98, respiratory rate is 20, blood pressure 113/70, pulse ox 98% on room air. LABORATORY FINDINGS: Show white count on discharge was 17, hemoglobin was 10.9, hematocrit was 34, and platelets was 515. The patient was on steroids, hints the steroid-induced leukocytosis. Chemistry; sodium 140, potassium 4.7, chloride 100, bicarb 29, anion gap is 15, BUN is 25, creatinine is 0.89, glucose is 86, calcium is 9.2. Troponins were all negative. Albumin was 3. CK 91. LFTs were normal. MICROBIOLOGY: Blood cultures were negative. His bronchial washings consistent with gram-negative bacilli, that showed Pseudomonas, and which he was treated accordingly with IV antibiotics here and discharged on oral Levaquin per Pulmonary. He was advised to follow up with Pulmonary in the office. IMAGING STUDIES: Chest x-ray shows right lower lobe airspace opacity suggestive of pneumonia. A bullous emphysematous changes, old cavitation in the right upper lobe with associated scarring with pleural thickening. CTA of the chest shows a thickened wall cavity in apex of the right upper lobe associated with pleural thickening and scarring and bronchiectasis at the inferior aspect. Etiology uncertain. Right lower lobe infiltrate suggestive of pneumonia. Enlarged pulmonary artery suggestive of pulmonary arterial hypertension. There is a narrowing of the right bronchus without filling defect. Prominent mediastinal lymph nodes, likely reactive. Centrilobular and paraseptal emphysema. Prominent ascending aorta. Chest x-ray on 10/26/2018, shows patchy opacities in the right apical cavitary lesion, likely post bronchial changes. There is no pneumothorax post bronchoscopy. HOSPITAL COURSE: This is a 68-year-old male with multiple comorbidities of known chronic smoker for several years, came into the ED with underlying shortness of breath, cough, congestion, and was treated for underlying pneumonia. Pulmonary was consulted to further evaluate. While here, the patient was on steroids, neb treatments, IV antibiotics. CT imaging was consistent with the right upper apex lobe bullous changes concerning for cavitation as well. The patient underwent bronchoscopy by Pulmonary. Microbiology was consistent with negative blood cultures, but showed Pseudomonas aeruginosa in the bronchial washings, and which he was discharged on oral Levaquin per Pulmonary. The patient maintained on IV antibiotics while here in the hospital stay as well. The patient was on steroids here and hence the reason why the patient's white count was elevated. He was afebrile throughout the majority of the hospital course. Of note, he was afebrile for more than 48 hours. The patient was ambulating, tolerating diet. No evidence of any infection or evidence of current illness at this time. I discussed this with the patient and the including the nursing staff present at bedside that the current leukocytosis is likely secondary to steroids and which he just received 2 doses prior to being discharged home. On discharge home, Pulmonary does not want steroids, instead just oral Levaquin. I also described to the family that if there is evidence of fever or any source of infection and if he does not feel well, so please come back to the hospital and they verbalized understanding. The patient was anxious to be discharged to home. Once again, leukocytosis is likely secondary to steroid induced as the patient is clinically looks very well. On the day of discharge, vital signs were stable, labs reviewed and stable. The patient is seen and evaluated, examined thoroughly on the day of discharge. No other complaints. The patient verbalized understanding and agrees with plan of care to follow up accordingly as an outpatient with the primary care physician in 1 week and Pulmonary in 1 to 2 weeks' time. The patient was cleared for discharge by Pulmonary as well for discharge to home, but needs close followup in his office. Family verbalized understanding and agrees with plan of care described above. MEDICATIONS: See med reconciliation form including the Levaquin script that was given to him for his underlying Pseudomonas. DISPOSITION: To home. CONDITION: Stable. DIET: Heart healthy. In the event of any worsening symptoms, the patient is advised to come back to the ED for further evaluation. Discharge summary took greater than 35 minutes. MD HUSSAIN Ortiz/RUSTY /[id number]
== END 2018-10-28 17:52 | disposition home or self-care (01) | DRG 178 ==
LOC: FSED 20:35 → ERHOLD 22:03 → MED/SURG3 22:58 → OBSVTOIN 10-23 11:53 → MED/SURG3 10-27 23:39
PROVIDERS: ADMIT Internal Medicine; ATTEND Internal Medicine
PROC: 0BDC8ZX Extraction of Right Upper Lung Lobe, Via Natural or Artificial Opening Endoscopic, Diagnostic (ICD-10-PCS; principal; 2018-10-26 10:04)
DX: J15.1 Pneumonia due to Pseudomonas (principal); J44.0 Chronic obstructive pulmonary disease with (acute) lower respiratory infection; J44.1 Chronic obstructive pulmonary disease with (acute) exacerbation; F17.210 Nicotine dependence, cigarettes, uncomplicated; I27.20 Pulmonary hypertension, unspecified; J98.4 Other disorders of lung; D72.829 Elevated white blood cell count, unspecified; T38.0X5A Adverse effect of glucocorticoids and synthetic analogues, initial encounter
CPT/HCPCS: 31625; 36415; 71045; 71046; 71250; 80048; 80053; 80076; 81003; 82550; 82553; 82948; 84484; 85025; 87040; 87070; 87102; 87116; 87186; 87205; 87206; 87335; 88112; 88305; 93005; 94640; 99284; G0378; J0171; J0456; J0696; J2001; J2250; J2405; J2920; J3010; J7050

== ENCOUNTER 2019-12-14 15:23 | Emergency (ER) | payer MEDICARE ==
[~2019-12-14] VITALS: Ht 185.4 cm; Wt 64.0 kg
[~2019-12-14 15:23] MED LIST: LEVAQUIN500 MG PO; TRAZODONE HCL50 MG PO
--- OUTSIDE RECORDS SUMMARY | 2019-12-14 15:43 | XMS REPORT | Continuity of Care Document ---
Author Author [facility] t Organization [facility] Address [address] [place] [address] Phone Unavailable Care Team Providers Care Career Technology Teacher Name Role Phone NONSTAFF PCP Unavailable SHALONDA DUDLEY D.O. Attphys Unavailable JEFF JACOB M.D. Attphys Unavailable ROSEMARIE JACOBSEN Attphys Unavailable ALEX CUMMINS P.A. Attphys Unavailable MILLIE GARZA M.D. Attphys Unavailable ROSEMARIE JACOBSEN Admphys Unavailable Payers Payer Name Policy Type Policy Number Effective Date Expiration Date S paula [employer] Medicare Replacement [id number] [facility] Problems Condition Name Condition Details Condition Category Status Onset Date Resolution Date Last Treatment Date Treating Clinician Comments Source Chronic obstructive pulmonary disease COPD (chronic ob structive pulmonary disease) Problem Active [facility] Pneumonia Pneumonia Problem Active [facility] History of alcohol abuse History of alcohol abuse Problem Resolved [facility] History of Dysthymic Disorder History of Dysthymic Disorder Problem Resolved [facility] History of hepatitis B virus infection History of hepatitis B virus infection Problem Resolved [facility] History of osteoarthritis History of osteoarthritis Problem Resolved [facility] Epididymal cyst Epididymal cyst Problem Active [facility] Colon cancer screening Colon cancer screening Problem Active [facility] DDD (degenerative disc disease) DDD (degenerative disc disease) Pro blem Active [facility] Arthritis Arthritis [facility] Bursitis of right knee, unspecified bursa Bursitis of right knee, unspecified bursa Problem Active [facility] Proteinuria, unspecified Proteinuria, unspecified Problem Active [facility] Cough, persistent Cough, persistent Problem Active [facility] Anxiety Anxiety Problem [facility] Hepatitis B, chronic Hepatitis B, chronic Problem Active [facility] Insomnia Insomnia Problem Active [facility] Elevated blood pressure reading Elevated blood pressure reading Pro blem Active [facility] Hydrocele Hydrocele Problem [facility] Cervicalgia Cervicalgia Problem Active [facility] Emphysema lung Emphysema lung Problem Active [facility] Impaired fasting glucose Impaired fasting glucose Problem Active [facility] Chronic pain of both shoulders Chronic pain of both shoulders Problem Active [facility] Need for shingles vaccine Need for shingles vaccine Problem Active [facility] Need for 23-polyvalent pneumococcal polysaccharide vac cine Need for 23- polyvalent pneumococcal polysaccharide vaccine Problem Active [facility] Need for hepatitis C screening test Need for hepatitis C screeni ng test Problem Active [facility] Coronary artery calcification Coronary artery calcification Problem Active [facility] Injury of left rotator cuff Injury of left rotator cuff Problem Active [facility] Subacromial bursitis of left shoulder joint Subacromia l bursitis of left shoulder joint Problem Active [facility] Subacromial bursitis of right shoulder joint Subacromi al bursitis of right shoulder joint Problem Active [facility] Bilateral shoulder region arthritis Bilateral shoulder region ar thritis Problem Active [facility] History of Pinched nerve in neck History of Pinched nerve in nec k Problem Resolved [facility] Acute cervical radiculopathy Acute cervical radiculopathy Problem Active [facility] ns Central spinal stenosis Central spinal stenosis Problem Active [facility] Foraminal stenosis of cervical region Foraminal stenosis of cervical region Problem Active [facility] Tear of right supraspinatus tendon Tear of right supraspinatus t endon Problem Active [facility] Lateral epicondylitis of left elbow Lateral epicondylitis of lef t elbow Problem Active [facility] Allergies, Adverse Reactions, Alerts Allergy Name Allergy Type Status Severity Reaction(s) Onset Date Inacti ve Date Treating Clinician Comments Source Penicillins Allergy to drug (finding) Inactive [facility] Family History Family Member Diagnosis Comments Start Date Stop Date Source Father Family history of Diabetes Mellitus [facility] Father Family history of myocardial infarction [facility] Social History Smoking Status Start Date Stop Date Source Smokes tobacco daily (finding) [facility] Medications Ordered Medication Name Filled Medication Name Start Date Stop Da te Current Medication? Ordering Clinician Indication Dosage Frequency Signature (SIG) Comments Components Source Gabapentin 300 MG Oral Capsule Gabapentin 300 MG Oral Capsul e 2019-05-17 00:00:00 Yes Q0.3333D TAKE 1 CAPSULE 3 TIMES SAL Y. [facility] methylPREDNISolone 4 MG Oral Tablet Therapy Pack methy lPREDNISolone 4 MG Oral Tablet Therapy Pack 2019-01-13 00:00:00 Yes JEFF THAYER M.D. TAKE DIRECTED [facility] Duexis 800-26.6 MG Oral Tablet Duexis 800-26.6 MG Oral Table t 2018-10-07 00:00:00 Yes JEFF THAYER M.D. TAKE 1 TABLET 3 TIMES DAILY PRN Days: 30; Qty: 90 X Tablet; [facility]ill[facility] Aspirin 81 MG Oral Tablet Delayed Release Aspirin 81 M G Oral Tablet Delayed Release 2018-09-20 00:00:00 Yes ALEX CUMMINS PAbhayAAbhay QD TAKE 1 TABLET DAILY. [facility] busPIRone HCl - 5 MG Oral Tablet busPIRone HCl - 5 MG Oral T ablet 2018-09-20 00:00:00 Yes SHALONDA DUDLEY D.O. 1 Q0.5D TAKE 1 TABLE T BY MOUTH TWICE DAILY [facility] ns Shingrix 50 MCG Intramuscular Suspension Reconstituted Shingrix 50 MCG Intramuscular Suspension Reconstituted 2018-09-20 00:00:00 Yes ALEX Sena Administer at pharmacy as directed [facility] Ventolin HFA 108 (90 Base) MCG/ACT Inhalation Aerosol Solution Ventolin HFA 108 (90 Base) MCG/ACT Inhalation Aerosol Solution 2017-07-21 00:00:00 Yes ALEX Melchor.AAbhay INHALE 1 TO 2 PUFFS BY MOUTH EVERY 4 TO 6 HOURS NEEDED [facility] traZODone HCl - 100 MG Oral Tablet traZODone HCl - 100 MG Or al Tablet 2017-05-01 00:00:00 Yes SHALONDA DUDLEY D.O. T ZEINA 1 AND 1/2 TABLETS BY MOUTH EVERY NIGHT AT BEDTIME [facility] Levofloxacin (Levaquin) 500 Mg Tablet Levofloxacin (Levaquin) 500 M g Tablet Yes 500 Daily [facility] Trazodone Hcl 50 Mg Tablet Trazodone Hcl 50 Mg Tablet Yes 150 Bedtime [facility] Mens One Daily TABS Mens One Daily TABS Yes 1 QD TAKE 1 TABLET DAILY [facility] Primatene Asthma TABS Primatene Asthma TABS Yes TAKE TABLET PRN [facility] Immunizations Ordered Immunization Name Filled Immunization Name Date Status Comments Source Fluzone High-Dose 0.5 ML Intramuscular Suspension Prefilled Syringe 2019-01-18 00:00:00 Completed [facility] Pneumovax 23 25 MCG/0.5ML Injection Injectable 2018-09 17:08:00 Completed [facility] Fluzone High-Dose 0.5 ML Intramuscular Suspension Prefilled Syringe 2018-01-11 14:01:00 Completed [facility] Influenza, seasonal, injectable Unknown Completed [facility] Tdap Unknown Completed [facility] Zoster (Zostavax) Unknown Completed [facility] Pneumo (Prevnar 7) Unknown Completed [facility] Vital Signs Vital Name Observation Time Observation Value Comments Source BP Systolic 2019-05-17 09:37:00 160 mm[Hg] Location: REGINO Positi on: Sitting [facility] BP Diastolic 2019-05-17 09:37:00 92 mm[Hg] Location: REGINO Positi on: Sitting [facility] Weight 2019-05-17 09:37:00 155 [lb_av] [facility] Body Mass Index Calculated 2019-05-17 09:37:00 20.45 kg/m2 [facility] Height 2019-05-17 09:37:00 73 [in_us] [facility] Temperature 2019-05-17 09:37:00 97.8 [degF] Method: Temporal [facility] Respiration Rate 2019-05-17 09:37:00 16 /min [facility] Heart Rate 2019-05-17 09:37:00 67 /min [facility] BP Systolic 2018-11-02 09:37:00 121 mm[Hg] Location: REGINO Positi on: Sitting [facility] BP Diastolic 2018-11-02 09:37:00 78 mm[Hg] Location: REGINO Positi on: Sitting [facility] Weight 2018-11-02 09:37:00 150 [lb_av] [facility] Body Mass Index Calculated 2018-11-02 09:37:00 19.79 kg/m2 [facility] Height 2018-11-02 09:37:00 73 [in_us] [facility] Temperature 2018-11-02 09:37:00 98.7 [degF] Method: Temporal [facility] Respiration Rate 2018-11-02 09:37:00 16 /min [facility] Heart Rate 2018-11-02 09:37:00 82 /min [facility] BP Systolic 2018-09-20 16:39:00 146 mm[Hg] Location: LUE; Positi on: Sitting [facility] BP Diastolic 2018-09-20 16:39:00 72 mm[Hg] Location: LUE; Positi on: Sitting [facility] Heart Rate 2018-09-20 16:39:00 76 /min [facility] BP Systolic 2018-09-20 16:37:00 161 mm[Hg] Location: LUE; Positi on: Sitting [facility] BP Diastolic 2018-09-20 16:37:00 80 mm[Hg] Location: LUE; Positi on: Sitting [facility] Heart Rate 2018-09-20 16:37:00 89 /min [facility] Height 2018-09-20 16:37:00 73 [in_us] [facility] Weight 2018-09-20 16:37:00 150 [lb_av] [facility] Body Mass Index Calculated 2018-09-20 16:37:00 19.79 kg/m2 [facility] Temperature 2018-09-20 16:37:00 97.5 [degF] Method: Temporal [facility] Respiration Rate 2018-09-20 16:37:00 16 /min [facility] BP Systolic 2018-01-11 13:35:00 157 mm[Hg] Location: LUE; Positi on: Sitting [facility] BP Diastolic 2018-01-11 13:35:00 86 mm[Hg] Location: LUE; Positi on: Sitting [facility] Weight 2018-01-11 13:35:00 152 [lb_av] [facility] Body Mass Index Calculated 2018-01-11 13:35:00 20.05 kg/m2 [facility] Height 2018-01-11 13:35:00 73 [in_us] [facility] Temperature 2018-01-11 13:35:00 98.7 [degF] Method: Temporal [facility] Respiration Rate 2018-01-11 13:35:00 16 /min [facility] Heart Rate 2018-01-11 13:35:00 81 /min [facility] BP Systolic 2017-09-30 14:12:00 163 mm[Hg] Location: LUE; Positi on: Sitting [facility] BP Diastolic 2017-09-30 14:12:00 97 mm[Hg] Location: LUE; Positi on: Sitting [facility] BP Systolic 2017-09-30 14:11:00 170 mm[Hg] Location: LUE; Positi on: Sitting [facility] BP Diastolic 2017-09-30 14:11:00 88 mm[Hg] Location: NADEGE; Positi on: Sitting [facility] Height 2017-09-30 14:11:00 73 [in_us] [facility] Weight 2017-09-30 14:11:00 153 [lb_av] [facility] Body Mass Index Calculated 2017-09-30 14:11:00 20.19 kg/m2 [facility] Temperature 2017-09-30 14:11:00 98.4 [degF] Method: Temporal [facility] Heart Rate 2017-09-30 14:11:00 83 /min [facility] Respiration Rate 2017-09-30 14:11:00 16 /min [facility] Procedures Procedure Date / Time Performed Performing Clinician Sourc e [QH] LIPID PANEL WITH REFLEX TO DIRECT LDL 2019-05-17 00:00:00 [facility] [QL] CBC (INCLUDES DIFF/PLT) 2019-05-17 00:00:00 [facility] [QL] CMP W/EGFR 2019-05-17 00:00:00 [facility] [PENDING SALE TO [facility]] TSH, 3RD GENERATION W/REFLEX TO FT4 2019-05-17 00:00:00 [facility] MR Shoulder wo contrast [id number] 2019-02-03 00:00:00 [facility] MRI Spine cervical wo contrast [id number] 2019-01-13 00:00:00 [facility] Bronchoscopy with biopsy 2018-10-26 00:00:00 KYLE COOPER CH I [facility] Computed tomography of chest without contrast 2018-10-23 00:00:0 0 ROSEMARIE JACOBSEN ASHLEY [facility] [U] XR SHOULDER MIN 2 VWS BILATERAL 2018-10-01 00:00:00 [facility] [U] XRAY SPINE CERVICAL 2 OR 3 VWS [id number] 2018-10-01 00:00:00 [facility] [QL] CMP W/EGFR 2018-09-20 00:00:00 [facility] [PENDING SALE TO [facility]] HEMOGLOBIN A1c 2018-09-20 00:00:00 [facility]] HEPATITIS C ANTIBODY 2018-09-20 00:00[facility] [] LIPID PANEL WITH REFLEX TO DIRECT LDL 2018-09-20 00:00:00 [facility] [] LIPID PANEL WITH REFLEX TO DIRECT LDL 2018-01-11 00:00:00 [facility] [PENDING SALE TO [facility]] CBC (INCLUDES DIFF/PLT) 2018-01-11 00:00:00 [facility] [PENDING SALE TO [facility]] CMP W/EGFR 2018-01-11 00:00:00 [facility] [PENDING SALE TO [facility]] TSH, 3RD GENERATION W/REFLEX TO FT4 2018-01-11 00:00:00 [facility] CT Low Dose Lung Screening [id number] 2017-10-22 00:00:00 [facility] [QL] MICROALBUMIN, RANDOM URINE (W/CREATININE) 2017-09-30 00:00 :00 [facility] History of Inguinal Hernia Repair 2014-11-09 00:00:00 [facility] History of Tonsillectomy With Adenoidectomy [facility] Encounters Start Date/Time End Date/Time Encounter Type Admission Type Att[facility] Care Department Encounter ID Source 2019-05-17 09:30:00 2019-05-17 09:30:00 Appointment; SHALONDA DUDLEY D.O. YEH, SHAO-CHUN, D.O. [facility] [id number] [facility] 2019-03-24 07:00:00 2019-03-24 07:00:00 Appointment; LI-KIMBERLEY JEOVANYJEFF WAN M.D. LI-YUNG HING, ANDREW, M.D. [facility] [id number] [facility] 2019-02-17 07:00:00 2019-02-17 07:00:00 Appointment; JEFF JACOB M.D. LI-YUNG HING, ANDREW, M.D. [facility] [id number] [facility] 2019-02-16 06:39:00 2019-02-16 06:39:00 Outpatient [id number] [facility] 2019-02-03 07:30:00 2019-02-03 07:30:00 Appointment; JEFF JACOB M.D. LI-YUNG HING, ANDREW, M.D. [facility] [id number] [facility] 2019-01-29 06:24:00 2019-01-29 06:24:00 Outpatient MHSE MHSE [id number] [facility] 2019-01-13 07:30:00 2019-01-13 07:30:00 Appointment; JEFF JACOB M.D. LI-YUNG HING, ANDREW, M.D. [facility] [id number] [facility] 2018-11-18 08:00:00 2018-11-18 08:00:00 Appointment; JEFF JACOB M.D. LI-YUNG HING, ANDREW, M.D. [facility] [id number] [facility] 2018-11-02 09:30:00 2018-11-02 09:30:00 Appointment; SHALONDA DUDLEY D.O. YEH, SHAO-CHUN, D.O. [facility] [id number] [facility] 2018-10-23 11:53:00 2018-10-28 17:52:00 Discharged Inpatient 1 ROSEMARIE JACOBSEN [facility] [id number] [facility] 2018-10-07 08:00:00 2018-10-07 08:00:00 Appointment; JEFF JACOB M.D. LI-YUNG HING, JEFF, M.D. [facility] Orthopedics - [facility] ast [id number] [facility] 2018-09-20 16:30:00 2018-09-20 16:30:00 Appointment; JULIANNA CUMMINS P.A. SPOONER, JOSEPH, P.A. [facility] [id number] [facility] 2018-01-11 13:30:00 2018-01-11 13:30:00 Appointment; SHALONDA DUDLEY D.O. YEH, SHAO-CHUN, D.O. [facility] [id number] [facility] 2017-09-30 14:15:00 2017-09-30 14:15:00 Appointment; MILLIE GARZA M.D. VAZQUEZ, NOEMI, M.D. [facility] [address] [id number] [facility] 2016-10-27 09:00:00 2016-10-27 09:00:00 Appointment; SHALONDA DUDLEY D.O. YEH, SHAO-CHUN, D.O. [facility] [id number] [facility] 2016-09-24 09:00:00 2016-09-24 09:00:00 Appointment; SHALONDA DUDLEY D.O. YEH, SHAO-CHUN, D.O. [facility] [id number] [facility] Results Test Description Test Time Test Comments Results Result Comments Source [U] XRAY ELBOW MIN 3 VWS LEFT [id number] 2019-03-24 07:27:00 Images acquired, not reported on this accession number. [facility] MR Shoulder wo contrast [id number] 2019-02-16 07:05:00 PROCEDURE INFORMATION:Exam: MR Right Upper Extremity Joint Without Contrast, ShoulderExam date and time: 02/16/2019 7:22 AMClinical history: 69 years old, male; Bursitis of right shoulder; Additionalinfo: /m75.51 bursitis of right shoulderTECHNIQUE:Imaging protocol: MR of the Right upper extremity without contrast. Examfocused on the shoulder.COMPARISON:No relevant prior studies available.FINDINGS:TEN DONS:Supraspinatus: Complete rupture of the supraspinatus tendon approximately 1 cmfrom insertion with retraction approximately 2.5 cm. Residual stump identifiedat the greater tuberosity. The tear measures approximately 2 cm in APdimension.Infraspinatus: Unremarkable. No evidence of tear.Subscapularis: Mild subscapularis tendinosis without additional tear.Teres minor: Unremarkable. No evidence of tear.Biceps brachii, long head: Moderate long head biceps tendinosis without tear.LIGAMENTS:Glenohumeral: Unremarkable.Glenoid labrum: Extensive degenerative tearing of the posterior superior andposterior labrum. Mild irregularity of the anterior labrum.Cartilage: Mild glenohumeral degenerative changes.Bones/joints: Large amount of fluid filling the subacromial/subdeltoid bursa.Associated synovitis. There is disruption of the AC joint capsule with fluidcommunicating with the joint space. Moderate acromioclavicular arthrosis withhypertrophy. Type 2 acromion.IMPRESSION:1. Complete full-thickness tear of t he supraspinatus tendon proximal to theinsertion with retraction. Mild supraspinatus muscle edema.2. Large amount fluid distending the subacromial/subdeltoid bursa andcommunicating with the acromioclavicular joint "geyser sign".3. Moderate long head biceps tendinosis.4. Mild glenohumeral osteoarthrosis with degenerative tearing of the labrum.Dereck Handy MD On 02/16/2019 10:48:05; [id number]--Yxcl by: Dereck Handy MDDictated Date/time: 02/16/19 10:48Electronically Signed by: Dereck Handy 02/16/1910:48FINAL REPORT [facility] MRI Spine cervical wo contrast [id number] 2019-01-29 07:10:00 Patient Name: MAYTE DANIELSOB: 1950; Age: 68 years y/o MaleMR: [id number]: Spine cervical wo contrast MRI 01/29/2019 7:10 CDTOrdering Physician: MELA Englinical Indication: - Cervicalgia; chronic pain of both shoulders;Comparison: NoneTECHNIQUE: Multiplanar noncontrast magnetic resonance imaging of the cervicalspine is performed.FINDINGS:There is reversal of cervical lordosis related to positioning and/or spasm.There is trace retrolisthesis at C5-C6 and C6-C7. The vertebral bodies arenormal in height. Moderate loss of disc height noted throughout the cervicalspine. The marrow signal is unremarkable. The craniocervical junction isunremarkable. The cervical cord is normal in signal and caliber. Theparavertebral soft tissues are unremarkable.Changes by levels:C2-C3: Shallow central disc protrusion. No stenosis..C3-C4: Small disc bulge osteophyte complex with mild spinal stenosis there ispartial effacement of the ventral subarachnoid space. Severe right foraminalstenosis due to facet arthrosis and uncovertebral arthrosis.C4-C5, C5-C6 and C6-C7: Moderate-sized disc bulge osteophyte complex andligamentum flavum thickening with moderate spinal stenosis and indentations onthe ventral and dorsal surfaces of the cord. No cord signal abnormality.Moderate bilateral foraminal stenosis due to uncovertebral arthrosis and facetarthrosis.C7-T1: Severe right foraminal stenos is due to facet hypertrophic changes in theright foraminal disc protrusion osteophyte complex. This likely impingement ofexiting nerve root..IMPRESSION:Moderate spinal canal and foraminal stenosis at C4-C5, C5-C6 and C6-C7.Severe right foraminal stenosis at C3-C4 and C7-T1.--Read by: [place] WorthingtonapDictated Date/time: 01/31/19 11:47Electronically Signed by: Cherry Worthington 01/31/1911:51FINAL REPORT [facility] White Blood Count 2018-10-28 16:41:00 Test Item White Blood Count (test code = 6690-2) 17.60 4.8-10.8 H [facility] Blood Gygru3548-93-11 16:41:00* Test Item Value Reference Range Interpretation Comments Red Blood Count (test code = 789-8) 4.03 4.3-5.7 L [facility] HospitalHemoglobin2019-07-11 16:41:00* Test Item Value Reference Range Interpretation Comments Hemoglobin (test code = 62172-6) 10.8 14.0-18.0 L [facility] HospitalHematocrit2019-07-11 16:41:00* Test Item Value Reference Range Interpretation Comments Hematocrit (test code = 4544-3) 33.7 38.2-49.6 L [facility] HospitalMean Corpuscular Apnvgr1371-84-35 16:41:00* Test Item Value Reference Range Interpretation Comments Mean Corpuscular Volume (test code = 787-2) 83.6 81-99 [facility] HospitalMean Corpuscular Bcjrgurjyd1770-74-42 16:41:00* Test Item Value Reference Range Interpretation Comments Mean Corpuscular Hemoglobin (test code = 785-6) 26.8 28-32 L [facility] HospitalMean Corpuscular Hemoglobin Concent 2018-10-28 16:41:00* Test Item Value Reference Range Interpretation Comments Mean Corpuscular Hemoglobin Concent (test code = 786-4) 32.0 31-35 [facility] HospitalRed Cell Distribution Kxdbs5773-32-70 16:41:00* Test Item Value Reference Range Interpretation Comments Red Cell Distribution Width (test code = 54157-7) 17.4 11.7 -14.4 H [facility] HospitalPlatelet Idieu1795-48-19 16:41:00* Test Item Value Reference Range Interpretation Comments Platelet Count (test code = 777-3) 515 140-360 H [facility] HospitalNeutrophils (%) (Auto)2018-10-28 16:41:00 * Test Item Value Reference Range Interpretation Comments Neutrophils (%) (Auto) (test code = 82837-3) 74.7 38.7-80.0 [facility] HospitalLymphocytes (%) (Auto)2018-10-28 16:41:00 * Test Item Value Reference Range Interpretation Comments Lymphocytes (%) (Auto) (test code = 736-9) 12.1 18.0-39.1 L [facility] HospitalMonocytes (%) (Auto)2018-10-28 16:41:00* Test Item Value Reference Range Interpretation Comments Monocytes (%) (Auto) (test code = 5905-5) 7.6 4.4-11.3 [facility] HospitalEosinophils (%) (Auto)2018-10-28 16:41:00 * Test Item Value Reference Range Interpretation Comments Eosinophils (%) (Auto) (test code = 713-8) 0.6 0.0-6.0 [facility] HospitalBasophils (%) (Auto)2018-10-28 16:41:00* Test Item Value Reference Range Interpretation Comments Basophils (%) (Auto) (test code = 706-2) 0.2 0.0-1.0 [facility] HospitalIM GRANULOCYTES %2018-10-28 16:41:00* Test Item Value Reference Range Interpretation Comments IM GRANULOCYTES % (test code = IM GRANULOCYTES %) 4.8 0.0- 1.0 H [facility] HospitalNeutrophils # (Auto)2018-10-28 16:41:00* Test Item Value Reference Range Interpretation Comments Neutrophils # (Auto) (test code = 751-8) 13.2 2.1-6.9 H [facility] HospitalLymphocytes # (Auto)2018-10-28 16:41:00* Test Item Value Reference Range Interpretation Comments Lymphocytes # (Auto) (test code = 17361-1) 2.1 1.0-3.2 [facility] HospitalMonocytes # (Auto)2018-10-28 16:41:00* Test Item Value Reference Range Interpretation Comments Monocytes # (Auto) (test code = 742-7) 1.3 0.2-0.8 H [facility] HospitalEosinophils # (Auto)2018-10-28 16:41:00* Test Item Value Reference Range Interpretation Comments Eosinophils # (Auto) (test code = 711-2) 0.1 0.0-0.4 [facility] HospitalBasophils # (Auto)2018-10-28 16:41:00* Test Item Value Reference Range Interpretation Comments Basophils # (Auto) (test code = 704-7) 0.0 0.0-0.1 [facility] HospitalAbsolute Immature Granulocyte (auto 2018-10-28 16:41:00* Test Item Value Reference Range Interpretation Comments Absolute Immature Granulocyte (auto (celestino t code = Absolute Immature Granulocyte (auto) 0.84 0-0.1 H [facility] HospitalBedside Ekvgmeu0576-24-09 11:41:00* Test Item Value Reference Range Interpretation Comments Bedside Glucose (test code = 62946-0) 242 70-120 H Meter ID: [id number] Mother Frances [facility] – TylerBronchial Washings Gchimge0872-35-62 10:30:00* Test Item Value Reference Range Interpretation Comments Bronchial Washings Culture (test code = 604-9) Organism: YEAST SPEC IES [facility] Qdjjogz6904-57-10 09:01:00* Test Item Value Reference Range Interpretation Comments Surgical Biopsy Culture (test code = 627-0) Organism: YEAST SPECIES [facility] HospitalBlood Zdxtlmw8287-51-20 23:01:00* Test Item Value Reference Range Interpretation Comments Blood Culture (test code = 42107082) NO GROWTH AFTER 5 DAYS, FINAL REPORT [facility] HospitalDifferential Total Cells Counted 2018-10-27 07:59:00* Test Item Value Reference Range Interpretation Comments Differential Total Cells Counted (test code = Differclement tial Total Cells Counted) 100 [facility] HospitalNeutrophils % (Manual)2018-10-27 07:59:00 * Test Item Value Reference Range Interpretation Comments Neutrophils % (Manual) (test code = 06149-3) 70 40-74 [facility] HospitalBand Neutrophils %2018-10-27 07:59:00* Test Item Value Reference Range Interpretation Comments Band Neutrophils % (test code = 764-1) 1 [facility] HospitalLymphocytes % (Manual)2018-10-27 07:59:00 * Test Item Value Reference Range Interpretation Comments Lymphocytes % (Manual) (test code = 737-7) 21 19-48 [facility] HospitalMonocytes % (Manual)2018-10-27 07:59:00* Test Item Value Reference Range Interpretation Comments Monocytes % (Manual) (test code = 744-3) 7 3.4-9.0 [facility] HospitalEosinophils % (Manual)2018-10-27 07:59:00 * Test Item Value Reference Range Interpretation Comments Eosinophils % (Manual) (test code = 714-6) 1 0-7 [facility] HospitalPlatelet Bdksbhrp7828-54-64 07:59:00* Test Item Value Reference Range Interpretation Comments Platelet Estimate (test code = 08412-8) SLIGHTLY INCREASED [facility] HospitalPlatelet Morphology Rrcwbpd4534-85-97 07:59:00* Test Item Value Reference Range Interpretation Comments Platelet Morphology Comment (test code = 85097-8) NORMAL [facility] HospitalRed Cell Morphology Dpxfyaa9538-35-03 07:59:00* Test Item Value Reference Range Interpretation Comments Red Cell Morphology Comment (test code = 6742-1) NORMAL [facility] Systemodium Cqqrr4137-99-08 06:49:00* Test Item Value Reference Range Interpretation Comments Sodium Level (test code = 2951-2) 140 136-145 [facility] HospitalPotassium Leyxc1996-90-39 06:49:00* Test Item Value Reference Range Interpretation Comments Potassium Level (test code = 2823-3) 4.7 3.5-5.1 [facility] HospitalChloride Unhpv8656-25-78 06:49:00* Test Item Value Reference Range Interpretation Comments Chloride Level (test code = 2075-0) 100 98-107 [facility] HospitalCarbon Dioxide Srupz9684-74-78 06:49:00* Test Item Value Reference Range Interpretation Comments Carbon Dioxide Level (test code = 2028-9) 29 22-29 [facility] HospitalAnion Qjx7754-56-75 06:49:00* Test Item Value Reference Range Interpretation Comments Anion Gap (test code = 96861-3) 15.7 8-16 [facility] HospitalBlood Urea Itmfprlf3017-60-60 06:49:00* Test Item Value Reference Range Interpretation Comments Blood Urea Nitrogen (test code = 3094-0) 25 7-26 [facility] HospitalCreatinine2019-07-10 06:49:00* Test Item Value Reference Range Interpretation Comments Creatinine (test code = 2160-0) 0.89 0.72-1.25 [facility] HospitalBUN/Creatinine Czscf7993-72-11 06:49:00* Test Item Value Reference Range Interpretation Comments BUN/Creatinine Ratio (test code = 3097-3) 28 6-25 H [facility] HospitalEstimat Glomerular Filtration Rate 2018-10-27 06:49:00* Test Item Value Reference Range Interpretation Comments Estimat Glomerular Filtration Rate (test code = 946461707) > 60 >60 Ranges were taken from the National Kidney Disease Education Program and the Monika unc healthal Kid[employer] Foundation literature.Reference ranges:60 or greater: Xfupls33-78 ( for 3 consecutive months): Chronic kidney disease 15 or less: Kidney failureHouston Methodist Willowbrook HospitalGlucose Yhvme9537-79-27 06:49:00* Test Item Value Reference Range Interpretation Comments Glucose Level (test code = VVR5420) 86 74-118 [facility] HospitalCalcium Unntg7584-61-70 06:49:00* Test Item Value Reference Range Interpretation Comments Calcium Level (test code = 77233-4) 9.2 8.4-10.2 [facility] HospitalCHEST SINGLE (PORTABLE)2018-10-26 11:24:00 [facility] [address] [place] [address] Patient Name: MAYTE MCKEON MR #: [id number] : 1950 Age/Sex: 68/M Req #: [id number] Adm Physician: ROSEMARIE JACOBSEN MD Ordered by: KYLE COOPER MD Report #: [id number] Location: MED/SURG3 Room/Bed: [facility] [place] Procedure: [id number] DX/CHEST SINGLE (PORTABLE) Exam Date: 10/26/18 Exam Time: 1055 REPORT STATUS: Signed PROCEDURE: CHEST SINGLE (PORTABLE) COMPARISON: CT chest without contrast 2018, chest radiograph 10/22/2018. INDICATIONS: POST BRONCH FINDINGS: The lungs remain hyperinflated. Right apical cavitary lesion is again noted, with interval development of patchy regional opacities, likely reflect marylin of post bronchoscopy changes. Airspace disease in the right lower lobe has slightly improved relative to 10/22/2018. Left lung remains grossly clear. Stable cardiomediastinal contour without overt pulmonary edema. CONCLU JEFF: Status post bronchoscopy without pneumothorax. Patchy opacities in the right apical cavitary lesion likely post bronchoscopy changes. Interval improvement in aeration of the right lower lobe. Background emphy sematous changes. Dictated by: Sondra Gotti M.D. on 10/26/2018 at 11:24 Electronically approved by: Sondra Gotti M.D. on 10/26/2018 at 11:24 Dictated By: SONDRA GOTTI MD 1124 Transcribed By: QUAN on 10/26/18 1124 COPY TO: Alonso COOPER MD Large Fwiilzijg1643-99-00 09:11:00* Test Item Value Reference Range Interpretation Comments Large Platelets (test code = 5908-9) FEW [facility] HospitalCT CHEST TS8391-98-63 21:33:00 [place] [address] Patient Name: MAYTE MCKEON MR #: [id number] : 1950 Age/Sex: 68/M Req #: [id number] Adm Physician: ROSEMARIE JACOBSEN MD Ordered by: ROSEMARIE JACOBSEN MD Report #: [id number] Location: [facility] Room/Bed: [facility] Procedure: [id number] CT/CT CHEST WO Exam Date: 10/23/18 Exam Time: 1220 REPORT STATUS: Signed CT chest without enhancement CPT code: 27335 INDICATION: COPD TECHNIQUE: Thin c ollimation axial images obtained from the thoracic inlet to the level of the d iaphragm without intravenous contrast. Dose reduction techniques used: Auto mated exposure control, adjustment of the mAs and/or kVp according to patient size, standardized low-dose protocol, and/or iterative reconstruction techniqu e. RADIATION DOSE: Total DLP: 481.25 mGy*cm Estimated effecti ve dose: (DLP x 0.015 x size factor) mSv CTDIvol has been reviewed. It is below the limits set by the Radiation Protocol Committee (RPC). COMPARIS ON: Chest x-ray 10/22/2018. CHEST FINDINGS: Lymph nodes: No enlarged ax illary or supraclavicular lymph nodes. Precarinal lymph nodes are enlarged, me asuring up to 15 mm in short axis. Subcarinal lymph nodes measure up to 12 mm in short axis. Hilar lymphadenopathy cannot be excluded given the lack of intr avenous contrast. Thyroid: Normal in size without mass in the visualized pa renchyma.. Mediastinum: The heart is normal in size. The ascending aorta me asures 4.2 cm. The main pulmonary artery measures 2.7 cm. The right pulmonary artery measures 3.1 cm. The left pulmonary artery measures 2.4 cm. There is a small pericardial effusion. The esophagus is collapsed. Lungs/pleura/airw ays: Right: Centrilobular emphysema. Septated cavity in the apex of the up per lobe measures 6.4 x 6.2 x 4.6 cm. There is no evidence of fluid. Scarring and bronchiectasis adjacent lung parenchyma immediately inferior. The adjacent pleura is thickened both laterally and posteriorly. Diffuse airspace opa cities throughout the mid and inferior lower lobe with associated bronchiectas is and bronchial wall thickening. There is a small associated pleural effusion . Left: Centrilobular and paraseptal emphysema. Diffuse bronchial wall th ickening. No infiltrates. No mass. No pleural effusion. Mild bronchial wall th ickening suggestive of chronic bronchitis. Airways: There is narrowing of t he right main bronchus to 9 mm without intraluminal filling defect. The bronch us intermedius measures 7 mm. ABDOMEN FINDINGS: No mass or lymphadenopath y in the upper abdomen. Trace amount of perihepatic fluid. Bones: No lyti c or blastic lesions.. IMPRESSION: 1. Thick walled cavity in the apex of the right upper lobe with associated pleural thickening and scarring/bronc hiectasis at the inferior aspect. Etiology is uncertain. This may be the seque la of previous infection, either bacterial or mycobacterial. Recommend 3 month follow-up to confirm stability. 2. Right lower lobe infiltrates suggesti ve of pneumonia. 3. Enlarged pulmonary artery suggestive of pulmonary arter y hypertension. There is narrowing of the right bronchus without filling defec t. This may be secondary to mass effect from the pulmonary artery. Underlying malignancy cannot be excluded on this unenhanced examination. 4. Promine nt mediastinal lymph nodes, likely reactive. 5. Centrilobular and parasepta l emphysema. 6. Prominent ascending aorta. Signed by: Dr. Lisa barrow MD on 10/23/2018 9:42 PM Dictated By: LISA WALSH MD Electron ically Signed By: LISA WALSH MD on 10/23/182141 Transcribed By: CALEB on 10/23/182141 COPY TO: ROSEMARIE JACOBSEN MD Creatine Kinase MB 2018-10-23 14:42:00* Test Item Value Reference Range Interpretation Comments Creatine Kinase MB (test code = 12942-2) 1.40 0-5.0 [facility] HospitalTroponin [id number] 14:42:00* Test Item Value Reference Range Interpretation Comments Troponin I (test code = CCL2259) < 0.001 0-0.300 [facility] HospitalCreatine Zosxbb0924-57-66 14:33:00* Test Item Value Reference Range Interpretation Comments Creatine Kinase (test code = 2157-6) 91 30-200 [facility] HospitalAnisocytosis2019-07-06 07:54:00* Test Item Value Reference Range Interpretation Comments Anisocytosis (test code = 702-1) SLIGHT [facility] HospitalToxic Sptryvxbfre9184-73-83 07:54:00* Test Item Value Reference Range Interpretation Comments Toxic Granulation (test code = 803-7) MODERATE [facility] HospitalTotal Ugntgazud6796-44-92 06:33:00* Test Item Value Reference Range Interpretation Comments Total Bilirubin (test code = 1975-2) 0.5 0.2-1.2 [facility] HospitalAspartate Amino Transf (AST/SGOT) 2018-10-23 06:33:00* Test Item Value Reference Range Interpretation Comments Aspartate Amino Transf (AST/SGOT) (test code = Aspartate Amino Transf (AST/SGOT)) 24 5-34 [facility] HospitalAlanine Aminotransferase (ALT/SGPT) 2018-10-23 06:33:00* Test Item Value Reference Range Interpretation Comments Alanine Aminotransferase (ALT/SGPT) (test code = 1742-6) 21 0-55 [facility] HospitalTotal Kkjvyai2621-59-64 06:33:00* Test Item Value Reference Range Interpretation Comments Total Protein (test code = 2885-2) 6.5 6.5-8.1 [facility] HospitalAlbumin2019-07-06 06:33:00* Test Item Value Reference Range Interpretation Comments Albumin (test code = 1751-7) 3.0 3.5-5.0 L [facility] HospitalGlobulin2019-07-06 06:33:00* Test Item Value Reference Range Interpretation Comments Globulin (test code = 54910-5) 3.5 2.3-3.5 [facility] HospitalAlbumin/Globulin Virjg8642-93-03 06:33:00 * Test Item Value Reference Range Interpretation Comments Albumin/Globulin Ratio (test code = 1759-0) 0.9 0.8-2.0 [facility] HospitalAlkaline Ovgoaedymjt2540-70-06 06:33:00* Test Item Value Reference Range Interpretation Comments Alkaline Phosphatase (test code = 6768-6) 90 40-150 [facility] HospitalCXR 2 VIEW - XJGS5124-50-17 21:41:00 [facility] [address] [place] [address] Patient Name: MAYTE MCKEON MR #: [id number] : 1950 Age/Sex: 68/M Req #: [id number] Adm Physician: Ordered by: PARAS MILLER MD Report #: [id number] Location: [facility] Room/Bed: Procedure: [id number] HOPD/CXR 2 VIEW - HOPD Exam Date: 10/22/18 Exam Time : 2129 REPORT STATUS: Signed EXA MINATION: CXR 2 VIEW - HOPD INDICATION: Possible URI, cough of greg-aye rios [id number] COMPARISON: None FINDINGS: PA and latera l views TUBES and LINES: None. LUNGS: Diffuse hyperinflation consist ent with emphysema. There are bullous emphysematous changes or a cavity in the right upper lobe with stellate density at the inferior aspect. There is adjac ent pleural thickening. There are infiltrates in the right lower lobe. The lef t lung is clear. PLEURA: No pleural effusion or pneumothorax. HEART A ND MEDIASTINUM: The cardiomediastinal silhouette is unremarkable. There is ri ghtward deviation of the upper trachea. BONES AND SOFT TISSUES: Diffusely demineralized. There are degenerative changes of the spine. No focal osseous l esions. Soft tissues are unremarkable. UPPER ABDOMEN: No free air under the diaphragm. IMPRESSION: 1. Right lower lobe airspace opacity is suggestive of pneumonia. Recommend follow-up chest x-ray in 8-10 weeks to docu ment interval change/resolution. 2. Bullous emphysematous changes or cavita tion of the right upper lobe with associated scarring, pleural thickening, and rightward deviation of the trachea. Correlation with outside studies and TB h istory is recommended. Signed by: Dr. Lisa Walsh MD on 10/22/2018 9:46 PM Dictated By: LISA WALSH MD 45 Transcribed By: CALEB on 10/22/182145 COPY TO: PARAS MILLER MD [] LIPID PANEL WITH REFLEX TO DIRECT [id number] 08:11:00* Test Item Value Reference Range Interpretation Comments CHOLESTEROL, TOTAL; Normal (test code = 2093-3) 149 mg/dl <200 N HDL CHOLESTEROL; Normal (test code = 2085-9) 54 mg/dl >40 N TRIGLYCERIDES; Normal (test code = 2571-8) 50 mg/dl <150 N LDL-CHOLESTEROL; Normal (test code = 61163-6) 83 {MG/DL GLENN} N Reference range: <100 Desirable range <100 mg/dL for primary prevention; <70 mg/dL for patients with CHD or diabetic patients with > or = 2 CHD risk factors. LDL-C is now calculated using the Kraig-Lozoya calculation, which is a validated novel method providing better accuracy than the Friedewald equation in the estimation of LDL-C. Kraig SS et al. LYNN. 2013;310(19): 9585-7519 (http ://education.Orugga.FastDue/faq/JIW597) CHOL/HDLC RATIO (test code = CHOL/HDLC RATIO) 2.8 {CALC} <5.0 N NON HDL CHOLESTEROL (test code = NON HDL CHOLESTEROL) 95 {MG/DL CA L} <130 N For patients with diabetes plus 1 major ASCVD risk factor, treating to a non-HDL-C goal of <100 mg/dL (LDL-C of <70 mg/dL) is considered a therapeutic option. [facility][PENDING SALE TO [facility]] CMP W/[id number] 08:11:00* Test Item Value Reference Range Interpretation Comments GLUCOSE; Normal (test code = 1547-9) 89 mg/dl 65-99 N Fasting reference interval UREA NITROGEN (BUN) (test code = UREA NITROGEN (BUN)) 17 mg/dl 7-25 N CREATININE (test code = CREATININE) 1.01 mg/dl 0.70-1.18 N For patients >49 years of age, the reference limitfor Creatinine is approximately 13% higher for peopleidentified as -Welsh. eGFR NON- (test code = eGFR NON-JIM N [facility]) 75 {ML/MIN/1.7} > OR = 60 N eGFR (test code = eGFR ) 87 {ML/MIN/1.7} > OR = 60 N BUN/CREATININE RATIO (test code = BUN/CREATININE RATIO) NOT APPLICA BLE 6-22 SODIUM (test code = SODIUM) 135 mmol/L 135-146 N POTASSIUM (test code = POTASSIUM) 4.4 mmol/L 3.5-5.3 N CHLORIDE (test code = CHLORIDE) 99 mmol/L 98-110 N CARBON DIOXIDE (test code = CARBON DIOXIDE) 29 mmol/L 20-32 N CALCIUM (test code = CALCIUM) 9.2 mg/dl 8.6-10.3 N PROTEIN, TOTAL (test code = PROTEIN, TOTAL) 6.5 g/dl 6.1-8.1 N ALBUMIN (test code = ALBUMIN) 3.9 g/dl 3.6-5.1 N GLOBULIN (test code = GLOBULIN) 2.6 {G/DL CALC} 1.9-3.7 N ALBUMIN/GLOBULIN RATIO (test code = ALBUMIN/GLOBULIN RATIO) 1.5 {CALC} 1.0-2.5 N BILIRUBIN, TOTAL; Normal (test code = 79518-9) 0.3 mg/dl 0.2-1.2 N ALKALINE PHSPHATASE (test code = ALKALINE PHSPHATASE) 79 u/l 40-115 N AST; Normal (test code = 1916-6) 22 u/l 10-35 N ALT; Normal (test code = 1742-6) 18 u/l 9-46 N [facility][PENDING S[facility] TO [facility]] HEPATITIS C [id number] 08:11:00* Test Item Value Reference Range Interpretation Comments HEPATITIS C ANTIBODY; Normal (test code = 95734-1) NON-REACTIVE NON -REACTIVE N SIGNAL TO CUT-OFF (test code = SIGNAL TO CUT-OFF) 0.03 <1.0 0 N HCV antibody was non-reactive. There is no laboratory evidence of HCV infection. In most cases, no further action is required. However,if recent HCV exposure is suspected, a test for HCV RNA(test code 92589) is suggested. For additional information please refer tohttp://education.VSS Monitoring.FastDue/faq/TFX89o4(This link is being provided for informational/educational purposes only.) [facility][PENDING SALE TO [facility]] HEMOGLOBIN [id number] 08:11:00* Test Item Value Reference Range Interpretation Comments HEMOGLOBIN A1c; Normal (test code = 4548-4) 5.4 {% of total} <5.7 N For the purpose of screening for the presence ofdiabetes: <5.7% Consistent with the absence of diabetes5.7-6.4% Consistent with increased risk for diabetes (prediabetes)> or =6.5% Consistent with diabetes This assay result is consistent with a decreased riskof diabetes. Currently, no consensus exists regarding use ofhemoglobin A1c for diagnosis of diabetes in children. According to [place] Diabetes Association (ADA)guidelines, hemoglobin A1c <7.0% represents optimalcontrol in non- diabetic patients. Differentmetrics may apply to specific patient populations. Standards of Medical Care in Diabetes(ADA). [facility][U] XR SHOULDER MIN 2 VWS [id number] 07:50:00Images acquired, not reported on this accession number.[facility][U] XRAY SPINE CERVICAL 2 OR 3 VWS [id number] 07:50:00 Images acquired, not reported on this accession number.[facility][O] Hemoglobin A1c (in office)2017-09-30 15:45:00* Test Item Value Reference Range Interpretation Comments HEMOGLOBIN A1c; Normal (test code = 4548-4) 5.5 N [facility]
[2019-12-14 16:21] LABS: BASOPHILS % 0.3 % (0.0-1.0); EOSINOPHILS # (AUTO) 0.3 (0.0-0.4); HEMATOCRIT 37.2 % (38.2-49.6); HEMOGLOBIN 11.8 g/dL (14.0-18.0); LYMPHOCYTES # (AUTO) 0.7 (1.0-3.2); LYMPHOCYTES % 10.1 % (18.0-39.1); MEAN CORPUSCULAR HEMOGLOBIN 28.6 pg (28-32); MEAN CORPUSCULAR HGB CONC 31.7 g/dL (31-35); MEAN CORPUSCULAR VOLUME 90.1 fL (81-99); MONOCYTES # (AUTO) 0.7 (0.2-0.8); MONOCYTES % 10.3 % (4.4-11.3); NEUTROPHILS % 75.2 % (38.7-80.0); PLATELET COUNT 249 x10e3/uL (140-360); RED BLOOD COUNT 4.13 x10e6/uL (4.3-5.7); RED CELL DISTRIBUTION WIDTH 14.5 % (11.7-14.4)
[2019-12-14 16:40] LABS: ALBUMIN 3.9 g/dL (3.5-5.0); ALBUMIN/GLOBULIN RATIO 1.1 (0.8-2.0); ANION GAP 17.1 mmol/L (8-16); CALCIUM 8.7 mg/dL (8.4-10.2); CREATININE, SERUM 1.54 mg/dL (0.72-1.25); POTASSIUM 4.1 mmol/L (3.5-5.1)
--- NOTE | 2019-12-14 16:56 | Emergency Department Note ---
History of Present Illnes History of Present Illness Chief Complaint: Genitourinary History of Present Illness This is a 69 year old male Chief Complaint Comment PATIENT IN FROM HOME WITH COMPLAINT SOF BLOOD IN URINE AND DIFFICULTY URINATING SINCE THIS MORNING; RATES PAIN 1/10. PATIENT STATES THAT THIS HAS HAPPENED BEFORE WHEN HE HAD A BAD URINARY TRACT INFECTION. Historian: Patient Arrival Mode: Car Steel Checker Required: No Onset (how long ago): day(s) (1) Location: Bladder Quality: Bloody urine Radiation: Reports non-radiation Severity: moderate Onset quality: sudden Duration (how long): day(s) (1) Timing of current episode: constant Progression: unchanged Chronicity: recurrent Context: Denies recent illness, Denies recent surgery Relieving factors: none Exacerbating factors: none Associated symptoms: Reports denies other symptoms Treatments prior to arrival: none Past Medical/Family History Physician Review I have reviewed the patient's past medical and family history. Any updates have been documented here. Past Medical History Recent Fever: No Clinical Suspicion of Infectio: No New/Unexplained Change in Ment: No Past Medical History: COPD Other Medical History: ANXIETY NEUROPATHY PINCHED NERVE Past Surgical History: T&A, Hernia Repair Other Surgery: HERNIA SX X2 Social History Smoking Cessation: Never Smoker Counseling Performed: No Alcohol Use: None Any Illegal Drug Use: No Physically hurt or threatened: No Other Last Tetanus: UTD Any Pre-Existing Lines (PICC,: No Review of Systems Review of Systems Constitutional: Reports no symptoms EENTM: Reports no symptoms Cardiovascular: Reports no symptoms Respiratory: Reports no symptoms Gastrointestinal: Reports no symptoms Genitourinary: Reports as per HPI, Reports hematuria Musculoskeletal: Reports no symptoms Integumentary: Reports no symptoms Neurological: Reports no symptoms Psychological: Reports no symptoms Endocrine: Reports no symptoms Hematological/Lymphatic: Reports no symptoms Physical Exam Related Data Allergies: Coded Allergies: No Known Allergies (Unverified , 10/22/18) Triage Vital Signs Vital Signs Date Time Temp Pulse Resp B/P (MAP) Pulse Ox O2 Delivery O2 Flow Rate FiO2 12/14/19 15:41 98.0 79 18 189/93 100 Room Air Vital signs reviewed: Yes Physical Exam CONSTITUTIONAL Constitutional: Present well-developed, Present well-nourished HENT HENT: Present normocephalic, Present atraumatic, Present oropharynx clear/moist, Present nose normal HENT L/R: Present left ext ear normal, Present right ext ear normal EYES Eyes: Reports PERRL, Reports conjunctivae normal NECK Neck: Present ROM normal PULMONARY Pulmonary: Present effort normal, Present breath sounds normal CARDIOVASCULAR Cardiovascular: Present regular rhythm, Present heart sounds normal, Present capillary refill normal, Present normal rate GASTROINTESTINAL Abdominal: Present soft, Present nontender, Present bowel sounds normal GENITOURINARY Genitourinary: Present penis normal, Present other (Hematuria) SKIN Skin: Present warm, Present dry MUSCULOSKELETAL Musculoskeletal: Present ROM normal NEUROLOGICAL Neurological: Present alert, Present oriented x 3, Present no gross motor or sensory deficits PSYCHOLOGICAL Psychological: Present mood/affect normal, Present judgement normal Results Laboratory Result Diagram: 12/14/19 1600 12/14/19 1600 Laboratory Laboratory Tests Test 12/14/19 16:00 12/14/19 15:35 White Blood Count 6.70 x10e3/uL (4.8-10.8) Red Blood Count 4.13 x10e6/uL (4.3-5.7) Hemoglobin 11.8 g/dL (14.0-18.0) Hematocrit 37.2 % (38.2-49.6) Mean Corpuscular Volume 90.1 fL (81-99) Mean Corpuscular Hemoglobin 28.6 pg (28-32) Mean Corpuscular Hemoglobin Concent 31.7 g/dL (31-35) Red Cell Distribution Width 14.5 % (11.7-14.4) Platelet Count 249 x10e3/uL (140-360) Neutrophils (%) (Auto) 75.2 % (38.7-80.0) Lymphocytes (%) (Auto) 10.1 % (18.0-39.1) Monocytes (%) (Auto) 10.3 % (4.4-11.3) Eosinophils (%) (Auto) 4.0 % (0.0-6.0) Basophils (%) (Auto) 0.3 % (0.0-1.0) Neutrophils # (Auto) 5.0 (2.1-6.9) Lymphocytes # (Auto) 0.7 (1.0-3.2) Monocytes # (Auto) 0.7 (0.2-0.8) Eosinophils # (Auto) 0.3 (0.0-0.4) Basophils # (Auto) 0.0 (0.0-0.1) Absolute Immature Granulocyte (auto 0.01 x10e3/uL (0-0.1) Sodium Level 136 mmol/L (136-145) Potassium Level 4.1 mmol/L (3.5-5.1) Chloride Level 101 mmol/L (98-107) Carbon Dioxide Level 22 mmol/L (22-29) Anion Gap 17.1 mmol/L (8-16) Blood Urea Nitrogen 14 mg/dL (7-26) Creatinine 1.54 mg/dL (0.72-1.25) Estimat Glomerular Filtration Rate 45 ML/MIN (60-) BUN/Creatinine Ratio 9 (6-25) Glucose Level 83 mg/dL (74-118) Calcium Level 8.7 mg/dL (8.4-10.2) Total Bilirubin 0.2 mg/dL (0.2-1.2) Aspartate Amino Transf (AST/SGOT) 34 IU/L (5-34) Alanine Aminotransferase (ALT/SGPT) 37 IU/L (0-55) Alkaline Phosphatase 71 IU/L (40-150) Total Protein 7.3 g/dL (6.5-8.1) Albumin 3.9 g/dL (3.5-5.0) Globulin 3.4 g/dL (2.3-3.5) Albumin/Globulin Ratio 1.1 (0.8-2.0) Lab results reviewed: Yes Assessment & Plan Medical Decision Making MDM 69-year-old male presents for hematuria and urinary retention starting last night. He states this happened before secondary to a urinary tract infection. He otherwise has no other symptoms. Work up shows gross hematuria was otherwise unremarkable. He was given a dose of Rocephin in the emergency department and will be prescribed Keflex for home. He has a urologist and will follow-up with him. Will be discharged home with a [place]. Patient is appropriate for discharge. Reassessment Reassessment time: 16:56 Reassessment Well appearing, NAD Assessment & Plan Final Impression: (1) Hematuria Depart Disposition: HOME, SELF-CARE Last Vital Signs Date Time Temp Pulse Resp B/P (MAP) Pulse Ox O2 Delivery O2 Flow Rate FiO2 12/13/ 15:41 98.0 79 18 189/93 100 Room Air Home Meds Active Scripts Cephalexin Monohydrate (KEFLEX) 500 Mg Capsule, 500 MG PO QID for 14 Days, #56 TAB 0 Refills Prov:DANG FITCH MD 12/14/19 Reported Medications Levofloxacin (LEVAQUIN) 500 Mg Tablet, 500 MG PO DAILY for 7 Days, TAB 10/28/18 Trazodone Hcl (TRAZODONE HCL) 50 Mg Tablet, 150 MG PO HS, #30 TAB 10/23/18 Medications in the ED Sodium Chloride 1,000 ml @ 0 mls/hr Q0M IV ; Start 12/14/19 at 17:00; Stop 12/14/19 at 17:59 DANG FITCH MD Dec 14, 2019 16:56
[2019-12-14] MEDS ORDERED: SODIUM CHLORIDE 0.9% 1000ML 1,000 ML ONE (16:59)
[2019-12-14] MEDS ORDERED: SODIUM CHLORIDE 0.9% 1000ML 1,000 ML IV SCH (17:00)
[2019-12-14] MEDS ORDERED: CEFTRIAXONE SOD 1 GM/NS 50 ML 50 ML IV ONE (17:30)
[2019-12-14] MEDS ORDERED: FENTANYL CITRATE/PF 100MCG/2 ML INJ IV ONE ×2 (17:30→19:15)
[2019-12-14] MEDS ORDERED: LIDOCAINE JELLY 2% 10ML URO-JET TOP ONE (18:45)
--- NOTE | 2019-12-14 20:01 | NUR ---
300 cc urine output obtained from 14fr coude bryan cath. dark red urine, sterile technique used, patient tolerated procedure well.
--- NOTE | 2019-12-14 21:01 | NUR ---
22fr 3-way coude unable to obtain 20fr coude obtained, sterile technique used, irrigated with 300cc manual saline flush, multiple clots removed while manually flushing, all showed to dr seay, patient verbalizes feeling better since arriving to the ed, patients bladder is no longer distended, patient smiling and thanking staff.
--- NOTE | 2019-12-14 21:18 | NUR ---
total urinary output from all bryan cath [id number] total manual saline output [id number] this is the total volume at time of this documentation
[2019-12-14 21:32] LABS: HEMATOCRIT 34.2 % (38.2-49.6); HEMOGLOBIN 10.9 g/dL (14.0-18.0)
[2019-12-14] MEDS ORDERED: KEFLEX500 MG PO (22:03)
[2019-12-14 22:10] VITALS: BP 111/81
[2019-12-14 22:18] LABS: CLARITY,URINE TURBID (CLEAR); COLOR,URINE RED (YELLOW); KETONES,URINE TRACE (NEGATIVE); LEUKOCYTE ESTERASE ,URINE LARGE (NEGATIVE); NITRITE,URINE NEGATIVE (NEGATIVE); PROTEIN,URINE DIPSTICK 2+ (NEGATIVE); URINE UROBILINOGEN 1 mg/dL (0.2 - 1)
[2019-12-14 22:19] LABS: BILIRUBIN,URINE MODERATE (NEGATIVE)
[2019-12-14 22:20] LABS: BACTERIA,URINE FEW /HPF; RBC,URINE >50 /HPF (0-5)
== END 2019-12-14 22:25 | disposition home or self-care (01) ==
LOC: ER 15:40
DX: R31.9 Hematuria, unspecified (principal); R33.9 Retention of urine, unspecified; J44.9 Chronic obstructive pulmonary disease, unspecified; F41.9 Anxiety disorder, unspecified; G62.9 Polyneuropathy, unspecified
CPT/HCPCS: 36415; 51703; 80053; 81001; 85014; 85018; 85025; 87086; 99283; C1758; J0696; J3010; J7030; 51700

== ENCOUNTER 2022-03-17 22:29 | Emergency (ER) | payer MEDICARE ==
[~2022-03-17] VITALS: Ht 185.4 cm; Wt 74.8 kg
[~2022-03-17 22:29] MED LIST changes: +KEFLEX500 MG PO
[2022-03-17] MEDS ORDERED: DEXAMETHASONE SOD PHOS INJ 4 MG/ML SDV IM ONE (23:45)
[2022-03-18] MEDS ORDERED: CEFUROXIME500 MG PO (00:03)
== END 2022-03-17 23:45 | disposition home or self-care (01) ==
LOC: FSED 22:44
DX: R05.9 Cough, unspecified (principal); J02.9 Acute pharyngitis, unspecified; J44.9 Chronic obstructive pulmonary disease, unspecified; R09.82 Postnasal drip
CPT/HCPCS: 83518; 87400; 99282